=== PATIENT | female | born 1945 | race Caucasian/White ===

== ENCOUNTER 2016-11-14 06:25 | Day surgery (SDC) | payer MEDICARE ==
[2016-11-11 09:59] VITALS: BMI 41.5
[2016-11-14] MEDS ORDERED: SODIUM CHLORIDE 0.9% 500 ML IV ONE (06:50)
[2016-11-14 07:02] VITALS: TEMP 98.4
[2016-11-14 07:05] LABS: Glucose,Whole Blood 240 mg/dL (75-99)
[2016-11-14] MEDS ORDERED: INSULIN LISPRO (humaLOG) 300 UNIT/3 ML VIAL SQ ONE (07:08)
[2016-11-14] MEDS ORDERED: MIDAZOLAM 2 MG/2 ML VIAL ONE ×2 (07:26→09:03)
[2016-11-14] MEDS ORDERED: fentaNYL (PF) 50 MCG/ML 2 ML AMP ONE (07:27)
[2016-11-14] MEDS: BENZOCAINE SPRAY 100 APPLIC/CAN MUCOUS MEM ONE ×2 (07:40→07:42)
[2016-11-14] MEDS: MIDAZOLAM 2 MG/2 ML VIAL IVP ONE ×2 (07:43→07:47)
[2016-11-14] MEDS ORDERED: SODIUM CHLORIDE 0.9% 1,000 ML IV SCH (08:15)
[2016-11-14] MEDS ORDERED: WARFARIN 5 MG TAB PO ONE (08:30)
[2016-11-14 09:05] LABS: CH 29.1; CHCM 32.2; HCT 30.6 % (34.0-46.0); HDW 2.67; HGB 10.3 gm/dL (11.4-16.0); INR 1.2 (<1.2); MCH 30.4 pg (25.0-35.0); MCHC 33.5 g/dL (31.0-37.0); MCV 90.8 fL (80.0-100.0); Mean Platelet Volume 9.1; Prothrombin Time 11.8 sec (9.0-12.0); RBC 3.37 m/uL (3.80-5.40); RDW 14.8 % (11.5-15.5)
[2016-11-14 09:15] LABS: ALT 42 U/L (9-52); AST 41 U/L (14-36); Alkaline Phosphatase 88 U/L (38-126); Anion Gap 8 mmol/L; Blood Urea Nitrogen 29 mg/dL (7-17); Calcium 8.5 mg/dL (8.4-10.2); Carbon Dioxide 27 mmol/L (22-30); Chloride 104 mmol/L (98-107); Glucose 181 mg/dL (74-99); Non-African American GFR(MDRD) >60 (>60 ml/min/1.73 sqM); Potassium 4.2 mmol/L (3.5-5.1); Sodium 139 mmol/L (137-145); Total Bilirubin 0.7 mg/dL (0.2-1.3); Total Protein 5.8 g/dL (6.3-8.2)
[2016-11-14] MEDS ORDERED: ENOXAPARIN 100 MG/ML SYRINGE SQ STA (09:45)
[2016-11-14 11:41] VITALS: PULSE 68
[2016-11-14 11:48] VITALS: BP 135/71; RESP 16
--- NOTE | 2016-11-15 10:16 | ECHOT ---
INDICATION: To evaluate for prosthetic valve stenosis. This is a 71 -year-old lady with history of coronary artery disease status post CABG with WRAY to the LAD and venous graft to PDA with aortic valve replacement to pericardial valve who has had chronic mitral stenosis presented to me with shortness of breath and on transthoracic echo was found to have severe stenosis of prosthetic aortic valve. The patient was advised to undergo transesophageal echo for further evaluation. She had been explained, risks, benefit and alternatives and understood and accepted. PROCEDURE NOTE: Total moderate conscious sedation time was 20 minutes. FINDINGS: This is a technically suboptimal study secondary to artifact. MITRAL VALVE: Mitral valve appears heavily calcified, shows severe restriction in leaflet mobility with moderate central mitral regurgitation. Aortic valve: There is a bioprosthetic valve in aortic position which appears heavily calcified with severe restriction and leaflet mobility. There is mild to moderate aortic regurgitation noted. Tricuspid valve appears normal. There is moderate tricuspid regurgitation noted. Left ventricle has normal size and shows mild to moderate LV systolic function with an ejection fraction of around 40 to 45%. Left atrium appears enlarged. Right atrium and right ventricle appear within normal limits. CONCLUSION: 1. Severe stenosis involving prosthetic aortic valve with mild to moderate aortic regurgitation. 2. Severe mitral stenosis with moderate central mitral regurgitation. 3. Moderate tricuspid regurgitation. 4. LV systolic function. The patient developed significant prosthetic valve stenosis and regurgitation and has underlying mitral stenosis that was not addressed at previous surgery. The patient had very difficult postoperative course following the aortic valve replacement and developed renal failure and has had prolonged hospitalization. I am going to refer her to Dr. Meraz at [facility] to see if the patient is a candidate for redo surgery with mitral and aortic valve replacement and if she is then I am going to do a left heart catheterization on her to reassess the grafts prior to surgery. Incidentally during the procedure, the patient was found in atrial fibrillation. I am going to anticoagulate her with Coumadin. She has unexplained anemia and we will have primary care physician address it further. ANGELIKA
== END 2016-11-14 10:44 | disposition home or self-care (01) ==
LOC: CATHCVL 06:25
PROVIDERS: ATTEND Internal Medicine Cardiovascular Disease
DX: I08.3 Combined rheumatic disorders of mitral, aortic and tricuspid valves (principal); Z95.2 Presence of prosthetic heart valve; Z95.1 Presence of aortocoronary bypass graft; I48.91 Unspecified atrial fibrillation; I10 Essential (primary) hypertension; E78.2 Mixed hyperlipidemia; E11.9 Type 2 diabetes mellitus without complications; Z79.84 Long term (current) use of oral hypoglycemic drugs; Z79.82 Long term (current) use of aspirin; Z79.899 Other long term (current) drug therapy; Z88.0 Allergy status to penicillin; Z88.2 Allergy status to sulfonamides; Z88.8 Allergy status to other drugs, medicaments and biological substances
CPT/HCPCS: 93312; 93320; 93005; 93325; 80053; 84443; 85027; 85610; 99152; 99153; J2250; J1650

== ENCOUNTER 2016-12-11 11:26 | Observation (INO) | payer MEDICARE ==
[2016-12-11] MEDS ORDERED: SODIUM CHLORIDE 0.9% 1,000 ML IV STA ×2 (12:33)
[2016-12-11 13:05] LABS: Anisocytosis Slight; Basophils % (A) 1 %; CH 29.4; CHCM 32.4; Eosinophils # (A) 0.2 k/uL (0-0.7); Eosinophils % (A) 3 %; HCT 35.2 % (34.0-46.0); HGB 11.7 gm/dL (11.4-16.0); Luc # (Auto) 0.13; Luc % (Auto) 2; Lymphocytes # (A) 1.4 k/uL (1.0-4.8); Lymphocytes % (A) 18 %; MCH 30.2 pg (25.0-35.0); MCHC 33.1 g/dL (31.0-37.0); MCV 91.1 fL (80.0-100.0); Mean Platelet Volume 9.1; Monocytes # (A) 0.6 k/uL (0-1.0); Monocytes % (A) 8 %; Neutrophils # (A) 5.3 k/uL (1.3-7.7); Neutrophils % (A) 69 %; RBC 3.87 m/uL (3.80-5.40); RDW 16.7 % (11.5-15.5); WBC 7.7 k/uL (3.8-10.6); WBC (Perox) 7.83
--- NOTE | 2016-12-11 13:13 | ED ---
Nausea/Vomiting/Diarrhea HPI - General Chief complaint: Nausea/Vomiting/Diarrhea Stated complaint: vomiting,diarrhea Time Seen by Provider: 12/11/16 12:11 Source: patient, family, RN notes reviewed, old records reviewed Mode of arrival: ambulatory Limitations: no limitations - History of Present Illness Initial comments: This is a 71-year-old female with multiple comorbidities presenting to the emergency Department chief complaint of diarrhea, and nausea feeling after being treated for urinary tract infection for the past 3 days. Patient reports that she was started on antibiotics and since then has been having some diiarrhea. Patitn was placed on Doxycycline. Patient also relates that on Monday night she did have an episode of chest pain. Patient stated that resolved. Denies any current chest pain or shortness of breath at this time. Denies any specific abdominal pain. She just reports that she feels very dehydrated. Patient relates that she is supposed to have a cardiac cath completed on Monday. She was told to discontinue her warfarin on Monday. Patient son also relates that this morning she did have an episode of slurred speech which immediately resolved. No neurological deficits at this time. Patient denies any headache. Vision changes. Denies any neck pain. Patient reports that she has a history of atrial fibrillation and that is why she is on warfarin. She also has had recent TEEs, and is told that she eventually needs to have heart valve replacements. Patient reports that the cardiac cath scheduled on Monday is to ensure that both of her previous stents are not blocked. - Related Data Home Medications Medication Instructions Recorded Confirmed Aspirin EC [Ecotrin Low Dose] 81 mg PO BID 11/11/16 12/11/16 Atorvastatin [Lipitor] 80 mg PO DAILY 11/11/16 12/11/16 Cholecalciferol (Vitamin D3) 2,000 unit PO DAILY 11/11/16 12/11/16 [Vitamin D3] Furosemide [Lasix] 40 mg PO DAILY 11/11/16 12/11/16 Lisinopril [Zestril] 5 mg PO DAILY 11/11/16 12/11/16 Magnesium Oxide [Mag-Ox] 400 mg PO BID 11/11/16 12/11/16 Metoprolol Tartrate [Lopressor] 25 mg PO BID 11/11/16 12/11/16 Multivitamins, Thera [Multivitamin 1 tab PO DAILY 11/11/16 12/11/16 (formulary)] glipiZIDE [Glucotrol] 5 mg PO BID 11/11/16 12/11/16 metFORMIN HCL [metFORMIN HCL ER] 1,000 mg PO BID 11/11/16 12/11/16 sitaGLIPtin [Januvia] 100 mg PO DAILY 11/11/16 12/11/16 Cyanocobalamin (Vitamin B-12) 1,000 mcg PO DAILY 12/07/16 12/11/16 [Vitamin B-12] Warfarin [Coumadin] 5 mg PO DIRECTED 12/07/16 12/11/16 Doxycycline Hyclate [Vibramycin] 100 mg PO BID 12/11/16 12/11/16 Levothyroxine Sodium [Synthroid] 88 mcg PO MOTUWETHFRSA 12/11/16 12/11/16 Loperamide [Imodium] 2 mg PO DAILY PRN 12/11/16 12/11/16 Allergies Allergy/AdvReac Type Severity Reaction Status Date / Time niacin Allergy Rash/Hives Verified 12/11/16 13:58 [From Niaspan Extended-Release] Penicillins Allergy Rash/Hives Verified 12/11/16 13:58 Sulfa (Sulfonamide Allergy Swelling Verified 12/11/16 13:58 Antibiotics) Review of Systems ROS Statement: Those systems with pertinent positive or pertinent negative responses have been documented in the HPI. ROS Other: All systems not noted in ROS Statement are negative. Past Medical History Past Medical History: Cancer, Diabetes Mellitus, Hyperlipidemia, Hypertension, Myocardial Infarction ([place]), Osteoarthritis (OA), Sleep Apnea/CPAP/BIPAP, Thyroid Disorder Additional Past Medical History / Comment(s): hx uterine cancer, uses cpap Last Myocardial Infarction Date:: 2014? History of Any Multi-Drug Resistant Organisms: None Reported Past Surgical History: Cardiac Valve Replacement, Coronary Bypass/CABG, Heart Catheterization, Hysterectomy, Joint Replacement, Tubal Ligation Additional Past Surgical History / Comment(s): x3 cath, lap band 2006, right hip 2009 with revision,[email or web address], radiation 2009 for uterine cancer Past Anesthesia/Blood Transfusion Reactions: No Reported Reaction Additional Past Anesthesia/Blood Transfusion Reaction / Comment(s): difficulty waking up Past Psychological History: No Psychological Hx Reported Smoking Status: Never smoker Past Alcohol Use History: None Reported Past Drug Use History: None Reported - Past Family History Father Family Medical History: Deep Vein Thrombosis (DVT) Sister(s) Family Medical History: Cancer Mother Family Medical History: Deep Vein Thrombosis (DVT) General Exam - General Exam Comments Initial Comments: This is a 71-year-old female. No acute distress. Limitations: no limitations General appearance: alert, in no apparent distress Head exam: Present: atraumatic, normocephalic, normal inspection Eye exam: Present: normal appearance, PERRL, EOMI. Absent: scleral icterus, conjunctival injection, periorbital swelling ENT exam: Present: normal exam, mucous membranes moist Neck exam: Present: normal inspection. Absent: tenderness, meningismus, lymphadenopathy Respiratory exam: Present: normal lung sounds bilaterally. Absent: respiratory distress, wheezes, rales, rhonchi, stridor Cardiovascular Exam: Present: regular rate, normal rhythm, normal heart sounds. Absent: systolic murmur, diastolic murmur, rubs, gallop, clicks GI/Abdominal exam: Present: soft, normal bowel sounds. Absent: distended, tenderness, guarding, rebound, rigid Extremities exam: Present: normal inspection, full ROM, normal capillary refill. Absent: tenderness, pedal edema, joint swelling, calf tenderness Back exam: Present: normal inspection Neurological exam: Present: alert, oriented X3, CN II-XII intact Expanded Patient oriented to: Present: person, place, time Speech: Present: fluid speech Cranial nerves: EOM's Intact: Normal Cerebellar function: Finger to Nose: Normal Upper motor neuron: Pronator Drift: Normal Sensory exam: Upper Extremity Light Touch: Normal, Lower Extremity Light Touch: Normal Motor strength exam: RUE: 5, LUE: 5, RLE: 5, LLE: 5 Eye Response: (4) open spontaneously Motor Response: (6) obeys commands Verbal Response: (5) oriented Cole Total: 15 Psychiatric exam: Present: normal affect, normal mood Skin exam: Present: warm, dry, intact, normal color. Absent: rash Course Vital Signs 12/11/16 12/11/16 12/11/16 11:52 16:13 16:50 Temperature 98.2 F 97.0 F L Pulse Rate 75 Pulse Rate [ 110 H Pulse Oximetery ] Respiratory 16 20 Rate Blood Pressure 125/60 Blood Pressure 140/81 [Left Arm] O2 Sat by Pulse 94 L 93 L Oximetry 12/11/16 17:00 Temperature 98.7 F Pulse Rate 107 H Pulse Rate [ Pulse Oximetery ] Respiratory Rate Blood Pressure 142/80 Blood Pressure [Left Arm] O2 Sat by Pulse 94 L Oximetry - Reevaluation(s) Reevaluation #1: 12/11/16 15:04 Patient is reevaluated this time is for the results. Patient ambulated to and from the bathroom. Patient has no neurological deficits again at this time. Discussed with the patient and the concern of the slurred speech could be related to TIA. She states that she thinks it's really related to dehydration. At this time patient is feeling better after IV fluids. Discussed this with the family. Discussed everything with Dr. Rothman. Patient will be admitted. Medical Decision Making - Medical Decision Making This is a 71-year-old female with multiple comorbidities presenting to the emergency Department chief complaint of diarrhea, and nausea feeling after being treated for urinary tract infection for the past 3 days. Patient reports that she was started on antibiotics and since then has been having some diiarrhea. Patitn was placed on Doxycycline. Patient also relates that on Monday night she did have an episode of chest pain. Patient stated that resolved. Denies any current chest pain or shortness of breath at this time. Denies any specific abdominal pain. She just reports that she feels very dehydrated. Patient relates that she is supposed to have a cardiac cath completed on Monday. She was told to discontinue her warfarin on Monday. Patient son also relates that this morning she did have an episode of slurred speech which immediately resolved. No neurological deficits at this time. Patient has no abdominal tenderness, denies any chest pain, or shortness of breath. Patient denies any neurological related symptosm at this time. Patient lab work reviewied, negative for any acute process. Negatiev Cdiff and occult blood. Patient son continues to states about patient havig an episode of slurred speech that lasted approximately 10 minutes prior to arriving to ED. Patient did discontinue warfarin for future cardiac cath in a few days. Patient does show Afib, which is chronic, and a few ischemic chagnes in inferior leads. This does appear similiar to previous EKG. Patient CXR was normal, KUB negative. Patient CT brain was normal, did show previous ischemic changes as well. . Patient INR is therapeutic at 2.0. AT this time patient will be admitted with cardiologiy and neurology consult. Patient agrees to admission. Discussed case withDr Rothman, whom examined the patient. He discussed with Dr. Sharpe. - Lab Data Result diagrams: 12/11/16 12:52 12/11/16 12:52 Lab Results 12/11/16 12/11/16 12/11/16 Range/Units 12:52 12:52 12:52 WBC 7.7 (3.8-10.6) k/uL RBC 3.87 (3.80-5.40) m/uL Hgb 11.7 (11.4-16.0) gm/dL Hct 35.2 (34.0-46.0) % MCV 91.1 (80.0-100.0) fL MCH 30.2 (25.0-35.0) pg MCHC 33.1 (31.0-37.0) g/dL RDW 16.7 H (11.5-15.5) % Plt Count 177 (150-450) k/uL Neutrophils % 69 % Lymphocytes % 18 % Monocytes % 8 % Eosinophils % 3 % Basophils % 1 % Neutrophils # 5.3 (1.3-7.7) k/uL Lymphocytes # 1.4 (1.0-4.8) k/uL Monocytes # 0.6 (0-1.0) k/uL Eosinophils # 0.2 (0-0.7) k/uL Basophils # 0.0 (0-0.2) k/uL Anisocytosis Slight PT (9.0-12.0) sec INR (<1.2) APTT (22.0-30.0) sec Sodium 140 (137-145) mmol/L Potassium 4.2 (3.5-5.1) mmol/L Chloride 100 (98-107) mmol/L Carbon Dioxide 29 (22-30) mmol/L Anion Gap 11 mmol/L BUN 23 H (7-17) mg/dL Creatinine 0.70 (0.52-1.04) mg/dL Est GFR (MDRD) Af Amer >60 (>60 ml/min/1.73 sqM) Est GFR (MDRD) Non-Af >60 (>60 ml/min/1.73 sqM) Glucose 85 (74-99) mg/dL Calcium 9.9 (8.4-10.2) mg/dL Magnesium 1.8 (1.6-2.3) mg/dL Total Bilirubin 1.2 (0.2-1.3) mg/dL AST 38 H (14-36) U/L ALT 37 (9-52) U/L Alkaline Phosphatase 108 (38-126) U/L Total Creatine Kinase 35 (30-135) U/L CK-MB (CK-2) <0.2 (0.0-2.4) ng/mL CK-MB (CK-2) Rel Index Troponin I <0.012 (0.000-0.034) ng/mL NT-Pro-B Natriuret Pep pg/mL Total Protein 7.0 (6.3-8.2) g/dL Albumin 4.1 (3.5-5.0) g/dL Amylase <30 L (30-110) U/L Lipase 116 (23-300) U/L Stool Occult Blood (Negative) C. difficile (EIA) Intrp (Negative) 12/11/16 12/11/16 12/11/16 Range/Units 12:52 12:52 13:15 WBC (3.8-10.6) k/uL RBC (3.80-5.40) m/uL Hgb (11.4-16.0) gm/dL Hct (34.0-46.0) % MCV (80.0-100.0) fL MCH (25.0-35.0) pg MCHC (31.0-37.0) g/dL RDW (11.5-15.5) % Plt Count (150-450) k/uL Neutrophils % % Lymphocytes % % Monocytes % % Eosinophils % % Basophils % % Neutrophils # (1.3-7.7) k/uL Lymphocytes # (1.0-4.8) k/uL Monocytes # (0-1.0) k/uL Eosinophils # (0-0.7) k/uL Basophils # (0-0.2) k/uL Anisocytosis PT 19.2 H (9.0-12.0) sec INR 2.0 H (<1.2) APTT 28.9 (22.0-30.0) sec Sodium (137-145) mmol/L Potassium (3.5-5.1) mmol/L Chloride (98-107) mmol/L Carbon Dioxide (22-30) mmol/L Anion Gap mmol/L BUN (7-17) mg/dL Creatinine (0.52-1.04) mg/dL Est GFR (MDRD) Af Amer (>60 ml/min/1.73 sqM) Est GFR (MDRD) Non-Af (>60 ml/min/1.73 sqM) Glucose (74-99) mg/dL Calcium (8.4-10.2) mg/dL Magnesium (1.6-2.3) mg/dL Total Bilirubin (0.2-1.3) mg/dL AST (14-36) U/L ALT (9-52) U/L Alkaline Phosphatase (38-126) U/L Total Creatine Kinase (30-135) U/L CK-MB (CK-2) (0.0-2.4) ng/mL CK-MB (CK-2) Rel Index Troponin I (0.000-0.034) ng/mL NT-Pro-B Natriuret Pep 589 pg/mL Total Protein (6.3-8.2) g/dL Albumin (3.5-5.0) g/dL Amylase (30-110) U/L Lipase (23-300) U/L Stool Occult Blood (Negative) C. difficile (EIA) Intrp Negative (Negative) 12/11/16 Range/Units 13:15 WBC (3.8-10.6) k/uL RBC (3.80-5.40) m/uL Hgb (11.4-16.0) gm/dL Hct (34.0-46.0) % MCV (80.0-100.0) fL MCH (25.0-35.0) pg MCHC (31.0-37.0) g/dL RDW (11.5-15.5) % Plt Count (150-450) k/uL Neutrophils % % Lymphocytes % % Monocytes % % Eosinophils % % Basophils % % Neutrophils # (1.3-7.7) k/uL Lymphocytes # (1.0-4.8) k/uL Monocytes # (0-1.0) k/uL Eosinophils # (0-0.7) k/uL Basophils # (0-0.2) k/uL Anisocytosis PT (9.0-12.0) sec INR (<1.2) APTT (22.0-30.0) sec Sodium (137-145) mmol/L Potassium (3.5-5.1) mmol/L Chloride (98-107) mmol/L Carbon Dioxide (22-30) mmol/L Anion Gap mmol/L BUN (7-17) mg/dL Creatinine (0.52-1.04) mg/dL Est GFR (MDRD) Af Amer (>60 ml/min/1.73 sqM) Est GFR (MDRD) Non-Af (>60 ml/min/1.73 sqM) Glucose (74-99) mg/dL Calcium (8.4-10.2) mg/dL Magnesium (1.6-2.3) mg/dL Total Bilirubin (0.2-1.3) mg/dL AST (14-36) U/L ALT (9-52) U/L Alkaline Phosphatase (38-126) U/L Total Creatine Kinase (30-135) U/L CK-MB (CK-2) (0.0-2.4) ng/mL CK-MB (CK-2) Rel Index Troponin I (0.000-0.034) ng/mL NT-Pro-B Natriuret Pep pg/mL Total Protein (6.3-8.2) g/dL Albumin (3.5-5.0) g/dL Amylase (30-110) U/L Lipase (23-300) U/L Stool Occult Blood Negative (Negative) C. difficile (EIA) Intrp (Negative) 12/11/16 13:39 EKG shows atrial fibrillation. T waves abnormality in leads to 3 aVF. Patient does have very of Natasha beats per minute. QRS duration 90 ms. QT QTC 390/460. EKG was compared to November 14 of this year. There was some ischemic changes in lead 3 that time. There does appear to be some worsening ischemic changes in aVF. - Radiology Data Radiology results: report reviewed Chest x-ray shows mild changes of congestive heart failure. CT brain No acute intracranial abnormality. Mild atrophy. Chronic white matter ischemic change. KUB x-ray was reviewed and shows no evidence of any acute trauma abdominal Disposition Clinical Impression: Acute diarrhea, History of dysarthria, UTI (urinary tract infection) Disposition: ADMITTED IP TO THIS HOSP Condition: Stable Time of Disposition: 16:04
[2016-12-11 13:14] LABS: ALT 37 U/L (9-52); AST 38 U/L (14-36); Alkaline Phosphatase 108 U/L (38-126); Amylase <30 U/L (30-110); Anion Gap 11 mmol/L; Blood Urea Nitrogen 23 mg/dL (7-17); Calcium 9.9 mg/dL (8.4-10.2); Carbon Dioxide 29 mmol/L (22-30); Chloride 100 mmol/L (98-107); Glucose 85 mg/dL (74-99); Magnesium 1.8 mg/dL (1.6-2.3); Non-African American GFR(MDRD) >60 (>60 ml/min/1.73 sqM); Potassium 4.2 mmol/L (3.5-5.1); Sodium 140 mmol/L (137-145); Total Bilirubin 1.2 mg/dL (0.2-1.3)
[2016-12-11 13:23] LABS: Creatine Kinase 35 U/L (30-135)
[2016-12-11 13:36] LABS: Creatine Kinase MB <0.2 ng/mL (0.0-2.4); Troponin I <0.012 ng/mL (0.000-0.034)
[2016-12-11 13:43] LABS: Partial Thromboplastin Time 28.9 sec (22.0-30.0); Prothrombin Time 19.2 sec (9.0-12.0)
--- NOTE | 2016-12-11 14:03 | XR ---
EXAMINATION TYPE: XR chest 2V DATE OF EXAM: 12/11/2016 HISTORY: Chest Pain. REFERENCE: Previous study dated 10/24/2013. FINDINGS: There has been a previous midline sternotomy. The heart is enlarged. There is vascular congestion and mild interstitial change. Pleural spaces appe ar clear. IMPRESSION: MILD CHANGES OF CONGESTIVE HEART FAILURE.
--- NOTE | 2016-12-11 14:04 | XR ---
EXAMINATION TYPE: XR KUB , 2 VIEWS DATE OF EXAM ORDERED: 12/11/2016 HISTORY: Pain. COMPARISON: None. FINDINGS: There is a right hip arthroplasty in place. There is a lap band in place. Its incompletely visualized. The abdominal gas pattern is normal. There is no evidence of obstruction or free air. There is amorph ous calcification around the patient's arthroplasty. IMPRESSION: NO ACUTE INTRA-ABDOMINAL ABNORMALITY.
--- NOTE | 2016-12-11 14:11 | CT ---
EXAMINATION TYPE: CT brain wo con DATE OF EXAM: 12/11/2016 COMPARISON: NONE HISTORY: Slurred speech earlier, fatigue, nausea and vomiting. CT DLP: 1061.00 mGycm Automated exposure control for dose reduction was used. FINDINGS: There are mild, generalized changes of sulcal prominence and ventriculomegaly, compatible with mild a trophic change. There is diffuse periventricular white matter lucency, compatible with chronic white matter ischemic change. There is no acute focal lesion, mass effect or midline shift identified. I do not see evidence of intracranial blood. Note is made of a cavum septum callosum, a normal variant. Visualized portions of the paranasal sinuses and mastoids are clear. IMPRESSION: 1. NO ACUTE INTRACRANIAL ABNORMALITY. 2. MILD ATROPHY. 3. CHRONIC WHITE MATTER ISCHEMIC CHANGE.
[2016-12-11] MEDS ORDERED: NALOXONE 0.4 MG/ML 1 ML VIAL IV PRN (16:04)
[2016-12-11] MEDS ORDERED: ACETAMINOPHEN TAB 325 MG TAB PO PRN (16:04)
[2016-12-11] MEDS ORDERED: Acetaminophen-Codeine 300-30mg TAB PO PRN (16:04)
[2016-12-11] MEDS ORDERED: MORPHINE SULFATE 4 MG/ML SYRINGE IV PRN (16:04)
[2016-12-11] MEDS ORDERED: IBUPROFEN 400 MG TAB PO PRN (16:04)
[2016-12-11] MEDS ORDERED: ONDANSETRON 4 MG/2 ML VIAL IVP PRN (16:04)
[2016-12-11] MEDS ORDERED: NITROGLYCERIN SL TABS 0.4 MG TAB SUBLINGUAL PRN (16:13)
[2016-12-11] MEDS ORDERED: LOPERAMIDE 2 MG CAP PO PRN (16:14)
[2016-12-11] MEDS ORDERED: LOPERAMIDE 2 MG CAP PO STA (16:32)
[2016-12-11 17:27] VITALS: BMI 41.5
[2016-12-11 17:27] LABS: Glucose,Whole Blood 139 mg/dL (75-99)
[2016-12-11] MEDS: SODIUM CHLORIDE 0.9% 1,000 ML IV SCH (17:51)
[2016-12-11 19:22] LABS: Creatine Kinase MB 0.5 ng/mL (0.0-2.4); Troponin I 0.017 ng/mL (0.000-0.034)
[2016-12-11] MEDS: MAGNESIUM OXIDE 400 MG TAB PO SCH (20:38)
[2016-12-11] MEDS: glipiZIDE 5 MG TAB PO SCH (20:38)
[2016-12-11] MEDS: DOXYCYCLINE 50 MG CAP PO SCH (20:38)
[2016-12-11] MEDS: metFORMIN 500 MG TAB PO SCH (20:39)
[2016-12-11] MEDS: METOPROLOL TARTRATE 25 MG TAB PO SCH (20:40)
[2016-12-11 20:55] LABS: Glucose,Whole Blood 150 mg/dL (75-99)
[2016-12-11 21:23] LABS: Appearance,Urine Clear (Clear); Bacteria,Urine Rare /hpf; Bilirubin,Urine Negative (Negative); Glucose,Urine (UA) Negative (Negative); Ketones,Urine Negative (Negative); Leukocyte Esterase,Urine Moderate (Negative); Mucus,Urine Rare /hpf; Nitrite,Urine Negative (Negative); PH, Urine 6.5 (5.0-8.0); Particle Count 2633; Protein,Urine Negative (Negative); RBC,Urine 1 /hpf (0-5); Squamous Epithelial Cell,Urine <1 /hpf (0-4); UA Billing (MACRO vs. MICRO) MICRO; Urobilinogen,Urine <2.0 mg/dL (<2.0); WBC,Urine 6 /hpf (0-5)
[2016-12-12 01:36] LABS: Creatine Kinase MB 0.8 ng/mL (0.0-2.4)
[2016-12-12 01:51] LABS: Troponin I 0.038 ng/mL (0.000-0.034)
[2016-12-12] MEDS: SODIUM CHLORIDE 0.9% 1,000 ML IV SCH ×3 (02:45→18:35)
[2016-12-12 02:48] LABS: Glucose,Whole Blood 74 mg/dL (75-99)
[2016-12-12 06:08] LABS: Glucose,Whole Blood 140 mg/dL (75-99)
[2016-12-12 06:15] LABS: Anisocytosis Slight; Basophils % (A) 1 %; CHCM 31.2; Eosinophils # (A) 0.1 k/uL (0-0.7); Eosinophils % (A) 2 %; HCT 34.1 % (34.0-46.0); HDW 2.87; HGB 10.7 gm/dL (11.4-16.0); Hypochromasia Slight; Luc # (Auto) 0.12; Luc % (Auto) 2; Lymphocytes # (A) 1.3 k/uL (1.0-4.8); Lymphocytes % (A) 19 %; MCH 29.4 pg (25.0-35.0); MCHC 31.4 g/dL (31.0-37.0); MCV 93.6 fL (80.0-100.0); Mean Platelet Volume 8.9; Monocytes # (A) 0.5 k/uL (0-1.0); Monocytes % (A) 7 %; Neutrophils # (A) 4.8 k/uL (1.3-7.7); Neutrophils % (A) 70 %; RBC 3.64 m/uL (3.80-5.40); RDW 16.8 % (11.5-15.5); WBC 6.8 k/uL (3.8-10.6); WBC (Perox) 7.38
[2016-12-12] MEDS: LEVOTHYROXINE 88 MCG TAB PO SCH (06:30)
[2016-12-12 06:38] LABS: ALT 37 U/L (9-52); AST 33 U/L (14-36); Alkaline Phosphatase 86 U/L (38-126); Amylase 31 U/L (30-110); Anion Gap 10 mmol/L; Blood Urea Nitrogen 18 mg/dL (7-17); Calcium 8.9 mg/dL (8.4-10.2); Carbon Dioxide 25 mmol/L (22-30); Chloride 105 mmol/L (98-107); Cholesterol 140 mg/dL (<200); Glucose 132 mg/dL (74-99); HDL Cholesterol 42 mg/dL (40-60); Non-African American GFR(MDRD) >60 (>60 ml/min/1.73 sqM); Potassium 3.9 mmol/L (3.5-5.1); Sodium 140 mmol/L (137-145); Total Protein 6.1 g/dL (6.3-8.2)
--- NOTE | 2016-12-12 08:39 | P.CRDCN ---
History of Present Illness Consult date: 12/12/16 Consult reason: other (Patient is admitted to hospital with diarrhea possible urinary tract infection and not feeling well) History of present illness: 71-year-old lady with history of coronary artery disease status post CABG with WRAY to LAD and venous graft to PDA iritic stenosis status post aortic valve replacement mitral stenosis who recently underwent a NEIL and had since been evaluated at [facility] for redo aortic valve surgery and mitral valve replacement. She was to undergo cardiac catheterization on . She developed symptoms of urinary tract infection was seen by her primary care physician in the outpatient setting started on antibiotics subsequently developed diarrhea vomiting and yesterday she was found to be very sick by her son and brought in to Hospital. She does not have any clear-cut focal neurological deficits. She denies leg edema. Has stable exertional shortness of breath. Patient has history of chronic atrial fibrillation currently on Coumadin most recent INR is 2.0. I will resume the Coumadin. I'm going to cancel the cardiac catheterization for now. Once the urinary tract infection resolves he' ll do a. She is to undergo NEIL at [facility] in first week of January. There is mild troponin elevation but patient's clinical presentation is not consistent with acute myocardial ischemia. EKG shows atrial fibrillation with nonspecific ST-T wave changes Review of Systems Constitutional: Denies chills. Denies fever. Eyes: Denies blurred vision. Denies pain. Ears, nose, mouth and throat: Denies headache. Denies sore throat. Cardiovascular: Denies chest pain. Denies shortness of breath. Respiratory: Denies cough. Gastrointestinal: Denies abdominal pain. Has diarrhea and vomiting Musculoskeletal: Denies myalgias. Integumentary: Denies pruritus. Denies rash. Neurological: Denies numbness. Denies weakness. Psychiatric: Denies anxiety. Denies depression. Endocrine: Denies fatigue. Denies weight change. Genitourinary: frequency of urination and burning Hematological: No anemia or excess bleeding. Past Medical History Past Medical History: Cancer, Diabetes Mellitus, Hyperlipidemia, Hypertension, Myocardial Infarction (SC), Osteoarthritis (OA), Sleep Apnea/CPAP/BIPAP, Thyroid Disorder Additional Past Medical History / Comment(s): hx uterine cancer, uses cpap Last Myocardial Infarction Date:: 2014? History of Any Multi-Drug Resistant Organisms: None Reported Past Surgical History: Cardiac Valve Replacement, Coronary Bypass/CABG, Heart Catheterization, Hysterectomy, Joint Replacement, Tubal Ligation Additional Past Surgical History / Comment(s): x3 cath, lap band 2006, right hip 2009 with revision,[email or web address], radiation 2009 for uterine cancer Past Anesthesia/Blood Transfusion Reactions: No Reported Reaction Additional Past Anesthesia/Blood Transfusion Reaction / Comment(s): difficulty waking up Past Psychological History: No Psychological Hx Reported Smoking Status: Never smoker Past Alcohol Use History: None Reported Past Drug Use History: None Reported - Past Family History Father Family Medical History: Deep Vein Thrombosis (DVT) Sister(s) Family Medical History: Cancer Mother Family Medical History: Deep Vein Thrombosis (DVT) Medications and Allergies Home Medications Medication Instructions Recorded Confirmed Type Aspirin EC [Ecotrin Low Dose] 81 mg PO BID 11/11/16 12/11/16 History Atorvastatin [Lipitor] 80 mg PO DAILY 11/11/16 12/11/16 History Cholecalciferol (Vitamin D3) 2,000 unit PO DAILY 11/11/16 12/11/16 History [Vitamin D3] Furosemide [Lasix] 40 mg PO DAILY 11/11/16 12/11/16 History Lisinopril [Zestril] 5 mg PO DAILY 11/11/16 12/11/16 History Magnesium Oxide [Mag-Ox] 400 mg PO BID 11/11/16 12/11/16 History Metoprolol Tartrate [Lopressor] 25 mg PO BID 11/11/16 12/11/16 History Multivitamins, Thera [Multivitamin 1 tab PO DAILY 11/11/16 12/11/16 History (formulary)] glipiZIDE [Glucotrol] 5 mg PO BID 11/11/16 12/11/16 History metFORMIN HCL [metFORMIN HCL ER] 1,000 mg PO BID 11/11/16 12/11/16 History sitaGLIPtin [Januvia] 100 mg PO DAILY 11/11/16 12/11/16 History Cyanocobalamin (Vitamin B-12) 1,000 mcg PO DAILY 12/07/16 12/11/16 History [Vitamin B-12] Warfarin [Coumadin] 5 mg PO DIRECTED 12/07/16 12/11/16 History Doxycycline Hyclate [Vibramycin] 100 mg PO BID 12/11/16 12/11/16 History Levothyroxine Sodium [Synthroid] 88 mcg PO MOTUWETHFRSA 12/11/16 12/11/16 History Loperamide [Imodium] 2 mg PO DAILY PRN 12/11/16 12/11/16 History Allergies Allergy/AdvReac Type Severity Reaction Status Date / Time niacin Allergy Rash/Hives Verified 12/11/16 13:58 [From Niaspan Extended-Release] Penicillins Allergy Rash/Hives Verified 12/11/16 13:58 Sulfa (Sulfonamide Allergy Swelling Verified 12/11/16 13:58 Antibiotics) Physical Exam Vitals: Vital Signs Temp Pulse Pulse Resp BP BP Pulse Ox 12/12/16 04:00 96.8 F L 77 16 113/53 100 12/12/16 00:00 75 16 115/63 95 12/11/16 20:00 96.9 F L 86 18 112/72 90 L 12/11/16 17:48 97.0 F L 110 H 20 140/81 93 L 12/11/16 17:38 110 H 20 12/11/16 17:00 98.7 F 107 H 142/80 94 L 12/11/16 16:50 97.0 F L 110 H 20 140/81 12/11/16 16:13 93 L 12/11/16 11:52 98.2 F 75 16 125/60 94 L Intake and Output 12/11/16 12/12/16 12/12/16 22:59 06:59 14:59 Intake Total 960 200 Balance 960 200 Intake: Intake, IV Titration 960 Amount Sodium Chloride 0.9% 1, 960 000 ml @ 120 mls/hr IV . Q8H20M [facility] Rx#:[id number] Oral 200 Other: Voiding Method Toilet # Bowel Movements 2 Weight 93.44 kg 94.8 kg General: The patient is awake and alert, in no distress, and does not appear acutely ill. Skin: Skin is warm and dry and no rashes or lesions are noted. Eye: Pupils are equal, round and reactive to light, extra-ocular movements are intact; there is normal conjunctiva bilaterally. Ears, nose, mouth and throat: There are moist mucous membranes and no oral lesions. Neck: The neck is supple, there is no tenderness or JVD. Cardiovascular: Irregular grade 4 x 6 ejection systolic murmur at the base of the heart. Systolic murmur at the apex. Respiratory: Lungs are clear to auscultation, respirations are non-labored, breath sounds are equal. Gastrointestinal: Soft, non-distended, non-tender abdomen without masses or organomegaly noted. There is no rebound or guarding present. Bowel sounds are unremarkable. Back: There is no tenderness to palpation in the midline. There is no obvious deformity. Musculoskeletal: Normal ROM, no tenderness, There is no pedal edema. There is no calf tenderness or swelling. Extremities: No edema. Vascular: Femoral pulse is normal. Posterior tibial pulses are normal .Dorsalis pedis is palpable. Neurological: CN II-XII intact. There are no obvious motor or sensory deficits. Speech is normal. Psychiatric: Cooperative, appropriate mood & affect, normal judgment. Results 12/12/16 05:31 12/12/16 05:31 Cardiac Enzymes 12/11/16 12/11/16 12/11/16 Range/Units 12:52 12:52 18:33 AST 38 H (14-36) U/L CK-MB (CK-2) <0.2 0.5 (0.0-2.4) ng/mL Troponin I <0.012 0.017 (0.000-0.034) ng/mL 12/12/16 12/12/16 Range/Units 00:21 05:31 AST 33 (14-36) U/L CK-MB (CK-2) 0.8 (0.0-2.4) ng/mL Troponin I 0.038 H* (0.000-0.034) ng/mL Coagulation 12/11/16 Range/Units 12:52 PT 19.2 H (9.0-12.0) sec APTT 28.9 (22.0-30.0) sec Lipids 12/12/16 Range/Units 05:31 Triglycerides 148 (<150) mg/dL Cholesterol 140 (<200) mg/dL HDL Cholesterol 42 (40-60) mg/dL CBC 12/11/16 12/12/16 Range/Units 12:52 05:31 WBC 7.7 6.8 (3.8-10.6) k/uL RBC 3.87 3.64 L (3.80-5.40) m/uL Hgb 11.7 10.7 L (11.4-16.0) gm/dL Hct 35.2 34.1 (34.0-46.0) % Plt Count 177 166 (150-450) k/uL Comprehensive Metabolic Panel 12/11/16 12/12/16 Range/Units 12:52 05:31 Sodium 140 140 (137-145) mmol/L Potassium 4.2 3.9 (3.5-5.1) mmol/L Chloride 100 105 (98-107) mmol/L Carbon Dioxide 29 25 (22-30) mmol/L BUN 23 H 18 H (7-17) mg/dL Creatinine 0.70 0.67 (0.52-1.04) mg/dL Glucose 85 132 H (74-99) mg/dL Calcium 9.9 8.9 (8.4-10.2) mg/dL AST 38 H 33 (14-36) U/L ALT 37 37 (9-52) U/L Alkaline Phosphatase 108 86 (38-126) U/L Total Protein 7.0 6.1 L (6.3-8.2) g/dL Albumin 4.1 3.4 L (3.5-5.0) g/dL Current Medications Generic Name Dose Route Start Last Admin Trade Name Freq PRN Reason Stop Dose Admin Acetaminophen 650 mg 12/11/16 16:04 Tylenol Tab PO Q6HR PRN Mild Pain or Fever > 100.5 Acetaminophen/Codeine Phosphate 1 each 12/11/16 16:04 Tylenol #3 PO Q4HR PRN Moderate Pain Aspirin 325 mg 12/12/16 09:00 Aspirin PO DAILY [facility] Atorvastatin Calcium 80 mg 12/12/16 09:00 Lipitor PO DAILY [facility] Cholecalciferol 2,000 unit 12/12/16 09:00 Vitamin D3 PO DAILY [facility] Cyanocobalamin 1,000 mcg 12/12/16 09:00 Vitamin B-12 PO DAILY [facility] Doxycycline Monohydrate 100 mg 12/11/16 21:00 12/11/16 20:38 Vibramycin PO 12/16/16 21:01 100 mg BID [facility] Administration Furosemide 40 mg 12/12/16 09:00 Lasix PO DAILY [facility] Glipizide 5 mg 12/11/16 21:00 12/11/16 20:38 Glucotrol PO 5 mg BID [facility] Administration Sodium Chloride 1,000 mls @ 120 mls/hr 12/11/16 16:15 12/12/16 02:45 Saline 0.9% IV 120 mls/hr .Q8H20M [facility] Administration Ibuprofen 400 mg 12/11/16 16:04 Motrin PO Q6HR PRN Mild Pain or Fever > 100.5 Levothyroxine Sodium 88 mcg 12/12/16 06:30 12/12/16 06:30 Synthroid PO 88 mcg MOTUWETHFRSA [facility] Administration Linagliptin 5 mg 12/12/16 09:00 Tradjenta PO DAILY [facility] Lisinopril 5 mg 12/12/16 09:00 Zestril PO DAILY [facility] Loperamide HCl 2 mg 12/11/16 16:14 Imodium PO DAILY PRN Diarrhea Magnesium Oxide 400 mg 12/11/16 21:00 12/11/16 20:38 Mag-Ox PO 400 mg BID [facility] Administration Metformin HCl 1,000 mg 12/11/16 21:00 12/11/16 20:39 Glucophage PO 1,000 mg BID [facility] Administration Metoprolol Tartrate 25 mg 12/11/16 21:00 12/11/16 20:40 Lopressor PO 25 mg BID [facility] Administration Morphine Sulfate 4 mg 12/11/16 16:04 Morphine Sulfate (Inj) IV Q4HR PRN Severe Pain Multivitamins 1 each 12/12/16 12:00 Theragran PO DAILY@1200 [facility] Naloxone HCl 0.2 mg 12/11/16 16:04 Narcan IV Q2M PRN Opioid Reversal Nitroglycerin 0.4 mg 12/11/16 16:13 Nitrostat SUBLINGUAL Q5M PRN Chest Pain Ondansetron HCl 4 mg 12/11/16 16:04 Zofran IVP Q8HR PRN Nausea And Vomiting Pantoprazole Sodium 40 mg 12/12/16 09:00 Protonix IV DAILY [facility] Intake and Output 12/11/16 12/12/16 12/12/16 22:59 06:59 14:59 Intake Total 960 200 Balance 960 200 Intake: Intake, IV Titration 960 Amount Sodium Chloride 0.9% 1, 960 000 ml @ 120 mls/hr IV . Q8H20M [facility] Rx#:[id number] Oral 200 Other: Voiding Method Toilet # Bowel Movements 2 Weight 93.44 kg 94.8 kg 12/12/16 05:31 12/12/16 05:31 EKG Interpretations (text) Atrial fibrillation with nonspecific ST-T wave changes Assessment and Plan Plan: Urinary tract infection Vomiting and diarrhea probably secondary to antibiotics Mild troponin elevation of unclear clinical significance Severe prosthetic valve stenosis Mitral stenosis Chronic atrial fibrillation I will continue the patient on current cardiac medications. Please watch out for coagulopathy with antibiotics. I'm going to postpone her cardiac catheterization from this week. When she is feeling better we will do it And she will continue with her workup and treatment at [facility] for prosthetic valve stenosis and mitral stenosis
[2016-12-12] MEDS ORDERED: PANTOPRAZOLE 40 MG/10 ML VIAL IV SCH (09:00)
[2016-12-12] MEDS ORDERED: ASPIRIN 325 MG TAB PO SCH (09:00)
[2016-12-12] MEDS: ATORVASTATIN 80 MG TAB PO SCH (09:06)
[2016-12-12] MEDS: CHOLECALCIFEROL 1,000 UNIT TAB PO SCH (09:06)
[2016-12-12] MEDS: CYANOCOBALAMIN 500 MCG TAB PO SCH (09:07)
[2016-12-12] MEDS: DOXYCYCLINE 50 MG CAP PO SCH ×2 (09:07→21:20)
[2016-12-12] MEDS: MAGNESIUM OXIDE 400 MG TAB PO SCH ×2 (09:08→21:20)
[2016-12-12] MEDS: FUROSEMIDE 40 MG TAB PO SCH (09:08)
[2016-12-12] MEDS: LINAGLIPTIN 5 MG TABLET PO SCH (09:08)
[2016-12-12] MEDS: glipiZIDE 5 MG TAB PO SCH ×2 (09:08→21:20)
[2016-12-12] MEDS: LISINOPRIL 5 MG TAB PO SCH (09:08)
[2016-12-12] MEDS: METOPROLOL TARTRATE 25 MG TAB PO SCH ×2 (09:09→21:20)
[2016-12-12] MEDS: metFORMIN 500 MG TAB PO SCH ×2 (09:09→21:20)
[2016-12-12] MEDS: MULTIVITAMINS, THERA 1 EACH TAB PO SCH (09:09)
--- NOTE | 2016-12-12 09:39 | US ---
EXAMINATION TYPE: US carotid duplex BILAT DATE OF EXAM: 12/12/2016 COMPARISON: NONE CLINICAL HISTORY: Pain. Dysarthria EXAM MEASUREMENTS: RIGHT: Peak Systolic Velocity (PSV) cm/sec ----- Right CCA: 41.5 ----- Right ICA: 68.8 ----- Right ECA: 47.3 ICA/CCA ratio: 1.7 RIGHT: End Diastole cm/sec ----- Right CCA: 9.6 ----- Right ICA: 27.7 ----- Right ECA: 0.0 LEFT: Peak Systolic Velocity (PSV) cm/sec ----- Left CCA: 49.6 ----- Left ICA: 118.8 ----- Left ECA: 31.6 ICA/CCA ratio: 2.4 LEFT: End Diastole cm/sec ----- Left CCA: 17.4 ----- Left ICA: 36.7 ----- Left ECA: 0.0 VERTEBRALS (direction of flow): Right Vertebral: Antegrade Left Vertebral: Antegrade Bilateral intimal thickening, minimal plaque bilateral bulb and ICA, left ICA/CCA ratio of 2.4 IMPRESSION: 1. Intimal thickening and plaque bilaterally with findings suggestive of 50-69% stenosis within the p roximal left ICA. Correlate with CTA as clinically warranted.
[2016-12-12 11:50] LABS: Glucose,Whole Blood 158 mg/dL (75-99)
[2016-12-12 16:42] LABS: Glucose,Whole Blood 81 mg/dL (75-99)
[2016-12-12] MEDS ORDERED: WARFARIN 5 MG TAB PO ONE (18:00)
--- NOTE | 2016-12-12 18:22 | P.HPIM ---
History of Present Illness H&P Date: 12/12/16 Chief Complaint: Nausea vomiting and diarrhea, elevated troponin, severe prostatic aortic va 71-year-old female one of Dr. Scott's patient who apparently was scheduled Dr. Del Toro to have heart catheter and transesophageal echocardiogram for possible going for aortic valve placement and possible mitral valve placement at [facility]. Patient apparently was seen in the office on and had UTI was started on doxycycline she developed significant abdominal discomfort with nausea vomiting and severe diarrhea he come quite bit dehydrated lightheaded and dizzy developed to have mild chest tightness and pressure. Patient ended up coming to demurs department at [facility] with above problem was seen and evaluated could not slowdown diarrhea or nausea vomiting and started having more symptoms found to have A. fib with RVR in her EKG decided to admit patient to the hospital seeing cardiology as an inpatient and plan where anticoagulation to resume it for now because would not be able to go for heart catheter till her diarrhea and GI symptoms are better. Patient still very lightheaded and dizzy not been able to ambulate and walk still symptomatic with the severe diarrhea C. diff came back negative for the time ration will be started on Questran along with Lomotil [id number] till her symptoms are better still been treated for an existing UTI with doxycycline. Review of Systems Constitutional: Reports anorexia, Reports chronic pain, Reports fatigue, Reports poor appetite, Reports weakness, Reports weight loss, Denies as per HPI , Denies chills, Denies chronic headaches, Denies daytime sleepiness, Denies fever, Denies lethargy, Denies malaise, Denies night sweats, Denies sweats, Denies weight gain Eyes: bilateral as per HPI Ears: bilateral: decreased hearing Ears, nose, mouth and throat: Reports ant. neck pain, Reports dental pain, Reports nasal discharge, Reports sinus pain, Reports sinus pressure, Denies as per HPI, Denies bleeding gums, Denies dysphagia, Denies epistaxis, Denies headache, Denies hoarseness, Denies mouth pain, Denies nasal congestion, Denies neck fullness/pressure, Denies neck lump, Denies nose pain, Denies odynophagia, Denies post-nasal drip, Denies swelling in mouth, Denies swelling in throat, Denies sore throat, Denies vertigo, Denies voice changes Breasts: bilateral: as per HPI Cardiovascular: Reports chest pain, Reports dyspnea on exertion, Reports edema, Reports leg edema, Reports orthopnea, Reports palpitations, Reports rapid heart beat, Reports shortness of breath, Denies as per HPI, Denies claudication, Denies decreased exercise tolerance, Denies high blood pressure, Denies irregular heart beat, Denies lightheadedness, Denies paroxysmal nocturnal dyspnea, Denies phlebitis, Denies syncope Respiratory: Reports congestion, Reports dyspnea, Reports pain, Reports pain on inspiration, Denies as per HPI, Denies cough, Denies cough with sputum, Denies excessive sputum, Denies hemoptysis, Denies home oxygen, Denies pleurisy, Denies respiratory infections, Denies sleep apnea, Denies snoring, Denies wheezing Gastrointestinal: Reports abdominal pain, Reports belching, Reports bloating, Reports change in bowel habits, Reports dyspepsia, Reports early satiety, Reports excessive gas, Reports indigestion, Reports loss of appetite, Reports nausea Genitourinary: Reports dysmenorrhea, Reports dysuria, Reports genital sores, Reports incomplete emptying, Reports mixed incontinence, Reports nocturia, Reports urge incontinence, Reports urinary frequency, Denies as per HPI, Denies abnormal vaginal bleeding, Denies decreased libido, Denies difficulty conceiving , Denies difficulty voiding, Denies dyspareunia, Denies flank pain, Denies hematuria, Denies hot flashes, Denies kidney stones, Denies menorrhagia, Denies pelvic pain, Denies post void dribbling, Denies , Denies prolapse symptoms, Denies stress incontinence, Denies urgency, Denies vaginal discharge, Denies vaginal dryness, Denies vaginal itching, Denies vaginal odor Musculoskeletal: Reports frequent falls, Reports gait dysfunction, Reports low back pain, Reports myalgias, Reports neck pain, Reports neck stiffness, Denies as per HPI, Denies arm numbness/tingling, Denies atrophy, Denies fractures, Denies hot joints, Denies leg numbness/tingling, Denies limitation of motion, Denies loss of height, Denies morning stiffness, Denies muscle cramps, Denies muscle weakness, Denies prior amputations, Denies redness of joints, Denies shooting arm pain, Denies shooting leg pain Musculoskeletal: bilateral: ankle pain Integumentary: Reports pruritus, Reports rash, Denies as per HPI, Denies acne, Denies boils, Denies brittle nails, Denies change in hair/nails, Denies color changes, Denies darkening of skin, Denies depigmentation, Denies dryness, Denies foot/leg ulcers, Denies growths, Denies hirsutism, Denies lesions, Denies onychomycosis, Denies sores, Denies striae, Denies unusual bruising, Denies wounds Neurological: Reports ataxia, Reports headaches, Reports numbness, Reports paresthesias, Reports syncope, Reports tingling, Reports tremors, Reports weakness, Denies as per HPI, Denies aphasia, Denies balance difficulties, Denies burning pain, Denies change in mentation, Denies change in smell/taste, Denies change in speech, Denies confusion, Denies convulsions, Denies double vision, Denies gait dysfunction, Denies head injury, Denies hearing difficulties , Denies lack of coordination, Denies loss of vision, Denies memory loss, Denies migraines, Denies motor disturbance, Denies paralysis, Denies seizures, Denies sensory deficit, Denies spasticity, Denies tic, Denies transient paralysis, Denies vertigo, Denies visual changes Psychiatric: Reports anhedonia, Reports anxiety, Reports anxiety attacks, Reports depression, Reports memory loss, Denies as per HPI, Denies change in appetite, Denies change in libido, Denies change in sleep habits, Denies confusion, Denies difficulty concentrating, Denies disorientation, Denies hallucinations, Denies hopelessness, Denies hypersomnia, Denies insomnia, Denies irritability, Denies mood swings, Denies paranoia, Denies sadness/ tearfulness, Denies sleep disturbances, Denies suicidal ideation Endocrine: Reports cold intolerance, Reports polydipsia, Reports polyphagia, Reports polyuria, Denies as per HPI, Denies deepening of the voice, Denies excessive sweating, Denies excessive thirst, Denies fatigue, Denies flushing, Denies heat intolerance, Denies high blood sugars, Denies increase in ring/shoe/ hat size, Denies low blood sugars, Denies nocturia, Denies palpitations, Denies proptosis, Denies recent glucocorticoid use, Denies thyroid mass, Denies weight change Hematologic/Lymphatic: Reports easy bruising, Denies as per HPI, Denies easy bleeding, Denies lymphadenopathy, Denies lymphedema, Denies thrombophilia Allergic/Immunologic: Reports allergic rhinitis, Denies as per HPI, Denies anaphylaxis, Denies angioedema, Denies gluten intolerance, Denies persistent infections, Denies seasonal allergies, Denies urticaria, Denies wheezing Past Medical History Past Medical History: Cancer, Diabetes Mellitus, Hyperlipidemia, Hypertension, Myocardial Infarction ([place]), Osteoarthritis (OA), Sleep Apnea/CPAP/BIPAP, Thyroid Disorder Additional Past Medical History / Comment(s): hx uterine cancer, uses cpap Last Myocardial Infarction Date:: 2014? History of Any Multi-Drug Resistant Organisms: None Reported Past Surgical History: Cardiac Valve Replacement, Coronary Bypass/CABG, Heart Catheterization, Hysterectomy, Joint Replacement, Tubal Ligation Additional Past Surgical History / Comment(s): x3 cath, lap band 2006, right hip 2009 with revision,[email or web address], radiation 2009 for uterine cancer Past Anesthesia/Blood Transfusion Reactions: No Reported Reaction Additional Past Anesthesia/Blood Transfusion Reaction / Comment(s): difficulty waking up Past Psychological History: No Psychological Hx Reported Smoking Status: Never smoker Past Alcohol Use History: None Reported Past Drug Use History: None Reported - Past Family History Father Family Medical History: Deep Vein Thrombosis (DVT) Sister(s) Family Medical History: Cancer Mother Family Medical History: Deep Vein Thrombosis (DVT) Medications and Allergies Home Medications Medication Instructions Recorded Confirmed Type Aspirin EC [Ecotrin Low Dose] 81 mg PO BID 11/11/16 12/11/16 History Atorvastatin [Lipitor] 80 mg PO DAILY 11/11/16 12/11/16 History Cholecalciferol (Vitamin D3) 2,000 unit PO DAILY 11/11/16 12/11/16 History [Vitamin D3] Furosemide [Lasix] 40 mg PO DAILY 11/11/16 12/11/16 History Lisinopril [Zestril] 5 mg PO DAILY 11/11/16 12/11/16 History Magnesium Oxide [Mag-Ox] 400 mg PO BID 11/11/16 12/11/16 History Metoprolol Tartrate [Lopressor] 25 mg PO BID 11/11/16 12/11/16 History Multivitamins, Thera [Multivitamin 1 tab PO DAILY 11/11/16 12/11/16 History (formulary)] glipiZIDE [Glucotrol] 5 mg PO BID 11/11/16 12/11/16 History metFORMIN HCL [metFORMIN HCL ER] 1,000 mg PO BID 11/11/16 12/11/16 History sitaGLIPtin [Januvia] 100 mg PO DAILY 11/11/16 12/11/16 History Cyanocobalamin (Vitamin B-12) 1,000 mcg PO DAILY 12/07/16 12/11/16 History [Vitamin B-12] Warfarin [Coumadin] 5 mg PO DIRECTED 12/07/16 12/11/16 History Doxycycline Hyclate [Vibramycin] 100 mg PO BID 12/11/16 12/11/16 History Levothyroxine Sodium [Synthroid] 88 mcg PO MOTUWETHFRSA 12/11/16 12/11/16 History Loperamide [Imodium] 2 mg PO DAILY PRN 12/11/16 12/11/16 History Allergies Allergy/AdvReac Type Severity Reaction Status Date / Time niacin Allergy Rash/Hives Verified 12/11/16 13:58 [From Niaspan Extended-Release] Penicillins Allergy Rash/Hives Verified 12/11/16 13:58 Sulfa (Sulfonamide Allergy Swelling Verified 12/11/16 13:58 Antibiotics) Physical Exam Vitals: Vital Signs Temp Pulse Pulse Resp BP BP Pulse Ox 12/12/16 12:00 74 18 118/72 90 L 12/12/16 09:00 97.0 F L 112 H 18 122/75 90 L 12/12/16 04:00 96.8 F L 77 16 113/53 100 12/12/16 00:00 75 16 115/63 95 12/11/16 20:00 96.9 F L 86 18 112/72 90 L 12/11/16 17:48 97.0 F L 110 H 20 140/81 93 L 12/11/16 17:38 110 H 20 12/11/16 17:00 98.7 F 107 H 142/80 94 L 12/11/16 16:50 97.0 F L 110 H 20 140/81 12/11/16 16:13 93 L Intake and Output 12/12/16 12/12/16 12/12/16 06:59 14:59 22:59 Intake Total 960 318 Output Total 1100 Balance 960 318 -1100 Intake: Intake, IV Titration 960 Amount Sodium Chloride 0.9% 1, 960 000 ml @ 120 mls/hr IV . Q8H20M [facility] Rx#:[id number] Oral 318 Output: Urine 1100 Other: Voiding Method Toilet # Voids 1 Weight 94.8 kg - Constitutional General appearance: no average body habitus, cooperative, no disheveled, no mild distress, no morbidly obese, no acute distress, no obese, no severe distress, no thin - EENT Eyes: no abnormal pupil, no anicteric sclerae, no disc margins sharp, no edentulous, no EOMI, no PERRLA, no fundus normal, no photophobia, no dentition normal, no poor dentition, no ptosis, no scleral icterus, normal appearance ENT: no hard of hearing, no hearing grossly normal, no NA/AT, normal oropharynx , no other, pharyngeal erythema, no thrush, no tonsillar exudates, no tonsillar swelling Ears: bilateral: normal - Neck Neck: no lymphadenopathy, normal ROM, no other, no rigidity, no stridor, no thyromegaly Carotids: bilateral: upstroke normal Thyroid: bilateral: normal size - Respiratory Respiratory: bilateral: CTA, diminished, dullness, rales, rhonchi - Cardiovascular Rhythm: regular Heart sounds: normal: S1, S2 Abnormal Heart Sounds: systolic murmur, diastolic murmur, S3 Gallop - Gastrointestinal General gastrointestinal: no absent bowel sounds, decreased bowel sounds, no distended, no hepatomegaly, no hyperactive bowel sounds, normal bowel sounds, no organomegaly, no rigid, no scaphoid, no soft, no splenomegaly, no tenderness , no umbilical hernia, no ventral hernia - Integumentary Integumentary: no calor, no cellulitis, no cyanotic, no decreased turgor, no flushed, no jaundiced, normal, no normal turgor, pale, rash, no ulcer - Neurologic Neurologic: CNII-XII intact - Musculoskeletal Musculoskeletal: gait normal, generalized weakness, strength equal bilaterally - Psychiatric Psychiatric: A&O x's 3, appropriate affect Results CBC & Chem 7: 12/12/16 05:31 12/12/16 05:31 Labs: Abnormal Lab Results - Last 24 Hours (Table) 12/11/16 12/11/16 12/11/16 Range/Units 17:24 20:33 21:15 RBC (3.80-5.40) m/uL Hgb (11.4-16.0) gm/dL RDW (11.5-15.5) % BUN (7-17) mg/dL Glucose (74-99) mg/dL POC Glucose (mg/dL) 139 H 150 H (75-99) mg/dL Troponin I (0.000-0.034) ng/mL Total Protein (6.3-8.2) g/dL Albumin (3.5-5.0) g/dL Ur Leukocyte Esterase Moderate H (Negative) Urine WBC 6 H (0-5) /hpf Urine Bacteria Rare H (None) /hpf Hyaline Casts 4 H (0-2) /lpf Urine Mucus Rare H (None) /hpf 12/12/16 12/12/16 12/12/16 Range/Units 00:21 02:47 05:31 RBC 3.64 L (3.80-5.40) m/uL Hgb 10.7 L (11.4-16.0) gm/dL RDW 16.8 H (11.5-15.5) % BUN (7-17) mg/dL Glucose (74-99) mg/dL POC Glucose (mg/dL) 74 L (75-99) mg/dL Troponin I 0.038 H* (0.000-0.034) ng/mL Total Protein (6.3-8.2) g/dL Albumin (3.5-5.0) g/dL Ur Leukocyte Esterase (Negative) Urine WBC (0-5) /hpf Urine Bacteria (None) /hpf Hyaline Casts (0-2) /lpf Urine Mucus (None) /hpf 12/12/16 12/12/16 12/12/16 Range/Units 05:31 06:07 11:45 RBC (3.80-5.40) m/uL Hgb (11.4-16.0) gm/dL RDW (11.5-15.5) % BUN 18 H (7-17) mg/dL Glucose 132 H (74-99) mg/dL POC Glucose (mg/dL) 140 H 158 H (75-99) mg/dL Troponin I (0.000-0.034) ng/mL Total Protein 6.1 L (6.3-8.2) g/dL Albumin 3.4 L (3.5-5.0) g/dL Ur Leukocyte Esterase (Negative) Urine WBC (0-5) /hpf Urine Bacteria (None) /hpf Hyaline Casts (0-2) /lpf Urine Mucus (None) /hpf Microbiology - Last 24 Hours (Table) 12/11/16 13:15 Stool for WBCs - Final Stool 12/11/16 13:15 Stool Culture - Preliminary Stool Thrombosis Risk Factor Assmnt - DVT/VTE Prophylaxis DVT/VTE Prophylaxis: Pharmacologic Prophylaxis ordered, Mechanical Prophylaxis ordered - Choose All That Apply Any of the Below Risk Factors Present?: Yes Each Factor Represents 1 point: Obesity (BMI >25) Other Risk Factors: Yes Each Risk Factor Represents 2 Points: Age 61-74 years Thrombosis Risk Factor Assessment Total Risk Factor Score: 3 Thrombosis Risk Factor Assessment Level: Moderate Risk Assessment and Plan Plan: 1 acute gastroenteritis: With intractable nausea vomiting and diarrhea, continue current treatment management continue Questran along with Lomotil continue hydration watch for any further symptoms. 2 severe diarrhea: With possible C. diff infection, C. diff culture was done negative so far will add Flagyl if needed if the symptom persistent in the meanwhile continue Questran and Lomotil. 3 severe aortic stenosis: Patient was supposed to have heart catheter and NEIL and prepare for her expected surgery coming in January at [facility]. 4 chronic A. fib with RVR: With her prosthetic valve patient will need to go back on her anticoagulation which should be started today we'll continue to watch her wrap INR and daily basis. 5 UTI: Culture was done patient is on doxycycline from the office continue medication for now. 6 type 2 diabetes: Has been on Glucotrol, metformin and Januvia continue Accu- Chek with sliding scales coverage. 7 hyperlipidemia: Remain on Lipitor. 8 hypertension: Has been on Lopressor along with Zestril. 9 hypothyroidism: Resume Synthroid as before. 10 GI prophylaxis: Patient will be on Pepcid 20 mg daily. 11 DVT prophylaxis: Patient is back on anticoagulation. CODE STATUS: Full code. Expectation from this admission: Patient be in the hospital for more than 2 nights.
--- NOTE | 2016-12-12 20:44 | P.CNNES ---
History of Present Illness Consult date: 12/12/16 History of Present Illness: The patient is a 71-year-old right-handed white female who states that last she was given an antibiotic for urinary tract infection. The following day she developed diarrhea and this continued for 2 days. She states that it gradually got better on Monday but when her son came over he felt he felt that she was walking a little shakily and her speech might of been slurred. She herself does not feel her speech was slurred. She states she was weak from having so much dehydration from diarrhea and also she had had some nausea and vomiting. Son brought her to the emergency room. She was admitted to the hospital with acute diarrhea and UTI. Neurology was called to see the patient regarding dysarthria. The patient denies any dysarthria. She states that she only had some dryness of mouth patient denied any focal weakness numbness visual disturbance speech disturbance or facial droop. Patient has a history of artificial cardiac valve and she will be going shortly for NEIL at [facility]. She is currently on Coumadin. 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 His mild atrophy and chronic ischemic white matter changes Review of Systems Constitutional: Denies chills, Denies fever Eyes: denies blurred vision, denies pain Ears, nose, mouth and throat: Denies headache, Denies sore throat Cardiovascular: Denies chest pain, Denies shortness of breath Respiratory: Denies cough Gastrointestinal: Denies abdominal pain, Denies diarrhea, Denies nausea, Denies vomiting Musculoskeletal: Denies myalgias Neurological: Denies numbness, Denies weakness Psychiatric: Denies anxiety, Denies depression Past Medical History Past Medical History: Cancer, Diabetes Mellitus, Hyperlipidemia, Hypertension, Myocardial Infarction ([place]), Osteoarthritis (OA), Sleep Apnea/CPAP/BIPAP, Thyroid Disorder Additional Past Medical History / Comment(s): hx uterine cancer, uses cpap Last Myocardial Infarction Date:: 2014? History of Any Multi-Drug Resistant Organisms: None Reported Past Surgical History: Cardiac Valve Replacement, Coronary Bypass/CABG, Heart Catheterization, Hysterectomy, Joint Replacement, Tubal Ligation Additional Past Surgical History / Comment(s): x3 cath, lap band 2006, right hip 2009 with revision,[email or web address], radiation 2009 for uterine cancer Past Anesthesia/Blood Transfusion Reactions: No Reported Reaction Additional Past Anesthesia/Blood Transfusion Reaction / Comment(s): difficulty waking up Past Psychological History: No Psychological Hx Reported Smoking Status: Never smoker Past Alcohol Use History: None Reported Past Drug Use History: None Reported - Past Family History Father Family Medical History: Deep Vein Thrombosis (DVT) Sister(s) Family Medical History: Cancer Mother Family Medical History: Deep Vein Thrombosis (DVT) Medications and Allergies Home Medications Medication Instructions Recorded Confirmed Type Aspirin EC [Ecotrin Low Dose] 81 mg PO BID 11/11/16 12/11/16 History Atorvastatin [Lipitor] 80 mg PO DAILY 11/11/16 12/11/16 History Cholecalciferol (Vitamin D3) 2,000 unit PO DAILY 11/11/16 12/11/16 History [Vitamin D3] Furosemide [Lasix] 40 mg PO DAILY 11/11/16 12/11/16 History Lisinopril [Zestril] 5 mg PO DAILY 11/11/16 12/11/16 History Magnesium Oxide [Mag-Ox] 400 mg PO BID 11/11/16 12/11/16 History Metoprolol Tartrate [Lopressor] 25 mg PO BID 11/11/16 12/11/16 History Multivitamins, Thera [Multivitamin 1 tab PO DAILY 11/11/16 12/11/16 History (formulary)] glipiZIDE [Glucotrol] 5 mg PO BID 11/11/16 12/11/16 History metFORMIN HCL [metFORMIN HCL ER] 1,000 mg PO BID 11/11/16 12/11/16 History sitaGLIPtin [Januvia] 100 mg PO DAILY 11/11/16 12/11/16 History Cyanocobalamin (Vitamin B-12) 1,000 mcg PO DAILY 12/07/16 12/11/16 History [Vitamin B-12] Warfarin [Coumadin] 5 mg PO DIRECTED 12/07/16 12/11/16 History Doxycycline Hyclate [Vibramycin] 100 mg PO BID 12/11/16 12/11/16 History Levothyroxine Sodium [Synthroid] 88 mcg PO MOTUWETHFRSA 12/11/16 12/11/16 History Loperamide [Imodium] 2 mg PO DAILY PRN 12/11/16 12/11/16 History Allergies Allergy/AdvReac Type Severity Reaction Status Date / Time niacin Allergy Rash/Hives Verified 12/11/16 13:58 [From Niaspan Extended-Release] Penicillins Allergy Rash/Hives Verified 12/11/16 13:58 Sulfa (Sulfonamide Allergy Swelling Verified 12/11/16 13:58 Antibiotics) Physical Examination - Vital Signs Vital Signs: Vital Signs Temp Pulse Resp BP Pulse Ox 12/12/16 16:13 91 L 12/12/16 16:00 97.1 F L 78 16 119/66 91 L 12/12/16 12:00 74 18 118/72 90 L 12/12/16 09:00 97.0 F L 112 H 18 122/75 90 L 12/12/16 04:00 96.8 F L 77 16 113/53 100 12/12/16 00:00 75 16 115/63 95 Intake and Output 12/12/16 12/12/16 12/12/16 06:59 14:59 22:59 Intake Total 960 318 118 Output Total 1100 Balance 960 318 -982 Intake: Intake, IV Titration 960 Amount Sodium Chloride 0.9% 1, 960 000 ml @ 120 mls/hr IV . Q8H20M [facility] Rx#:[id number] Oral 318 118 Output: Urine 1100 Other: Voiding Method Toilet Bedside Commode # Voids 1 Weight 94.8 kg - Constitutional General appearance: cooperative - EENT EENT: hearing intact, vision intact - Respiratory Respiratory: lungs clear - Cardiovascular Cardiovascular: regular rate, normal S1, normal S2 - Integumentary Integumentary: normal - Neurologic Status she was awake alert and oriented chance of questions appropriately there was no a aphasia or dysarthria Cranial nerve examination: PERRL, EOMI, VFF, face symmetric, tongue midline Speech examination: intact Sensorimotor examination: intact Detailed motor examination: grossly full strength in all extremities - Psychiatric Psychiatric: mood/affect appropriate Results - Laboratory Findings CBC and BMP: 12/12/16 05:31 12/12/16 05:31 Abnormal Lab Findings: Abnormal Labs 12/11/16 12/11/16 12/11/16 12:52 12:52 12:52 RBC Hgb RDW 16.7 H PT 19.2 H INR 2.0 H BUN 23 H Glucose POC Glucose (mg/dL) AST 38 H Troponin I Total Protein Albumin Amylase <30 L Ur Leukocyte Esterase Urine WBC Urine Bacteria Hyaline Casts Urine Mucus 12/11/16 12/11/16 12/11/16 17:24 20:33 21:15 RBC Hgb RDW PT INR BUN Glucose POC Glucose (mg/dL) 139 H 150 H AST Troponin I Total Protein Albumin Amylase Ur Leukocyte Esterase Moderate H Urine WBC 6 H Urine Bacteria Rare H Hyaline Casts 4 H Urine Mucus Rare H 12/12/16 12/12/16 12/12/16 00:21 02:47 05:31 RBC 3.64 L Hgb 10.7 L RDW 16.8 H PT INR BUN Glucose POC Glucose (mg/dL) 74 L AST Troponin I 0.038 H* Total Protein Albumin Amylase Ur Leukocyte Esterase Urine WBC Urine Bacteria Hyaline Casts Urine Mucus 12/12/16 12/12/16 12/12/16 05:31 06:07 11:45 RBC Hgb RDW PT INR BUN 18 H Glucose 132 H POC Glucose (mg/dL) 140 H 158 H AST Troponin I Total Protein 6.1 L Albumin 3.4 L Amylase Ur Leukocyte Esterase Urine WBC Urine Bacteria Hyaline Casts Urine Mucus Assessment and Plan (1) History of dysarthria Status: Acute Code(s): Z87.898 - PERSONAL HISTORY OF OTHER SPECIFIED CONDITIONS (2) Acute diarrhea Status: Acute Code(s): R19.7 - DIARRHEA, UNSPECIFIED (3) UTI (urinary tract infection) Status: Acute Code(s): N39.0 - URINARY TRACT INFECTION, SITE NOT SPECIFIED Plan: The patient is a 71-year-old woman with history of recent infection started on antibiotics and developed diarrhea. She had been dehydrated over the last few days. The neurology is requested the patient regarding episode of dysarthria which may have occurred yesterday. She had a CT of the brain which showed no acute abnormality. The patient reports that she did not have any speech disturbance. Her son however felt that she might of had some dysarthria. She had a carotid ultrasound which suggested 50-69% stenosis in the left ICA and vascular consultation and follow-up carotid in 6 months . The patient has chronic A. fib and is on Coumadin with an INR of 2.0
[2016-12-12 21:11] LABS: Glucose,Whole Blood 156 mg/dL (75-99)
[2016-12-12] MEDS: ASPIRIN 81 MG PO SCH (21:20)
[2016-12-13 00:13] VITALS: RESP 18
[2016-12-13] MEDS: LEVOTHYROXINE 88 MCG TAB PO SCH (06:38)
[2016-12-13] MEDS: PANTOPRAZOLE 40 MG TABLET PO SCH (06:39)
[2016-12-13] MEDS: SODIUM CHLORIDE 0.9% 1,000 ML IV SCH ×3 (06:39→15:54)
[2016-12-13 06:49] LABS: Anisocytosis Slight; Basophils % (A) 0 %; CH 29.9; CHCM 32.2; Eosinophils # (A) 0.1 k/uL (0-0.7); Eosinophils % (A) 2 %; HCT 32.1 % (34.0-46.0); HDW 3.01; HGB 10.2 gm/dL (11.4-16.0); Hypochromasia Slight; Luc # (Auto) 0.08; Luc % (Auto) 1; Lymphocytes # (A) 0.9 k/uL (1.0-4.8); Lymphocytes % (A) 14 %; MCH 29.6 pg (25.0-35.0); MCHC 31.7 g/dL (31.0-37.0); MCV 93.5 fL (80.0-100.0); Mean Platelet Volume 9.5; Monocytes # (A) 0.5 k/uL (0-1.0); Monocytes % (A) 8 %; Neutrophils % (A) 75 %; RBC 3.44 m/uL (3.80-5.40); WBC 6.7 k/uL (3.8-10.6); WBC (Perox) 7.34
[2016-12-13 06:57] LABS: Prothrombin Time 19.2 sec (9.0-12.0)
[2016-12-13 07:09] LABS: ALT 33 U/L (9-52); AST 33 U/L (14-36); Alkaline Phosphatase 81 U/L (38-126); Anion Gap 8 mmol/L; Blood Urea Nitrogen 17 mg/dL (7-17); Calcium 8.5 mg/dL (8.4-10.2); Carbon Dioxide 24 mmol/L (22-30); Chloride 109 mmol/L (98-107); Glucose 119 mg/dL (74-99); Non-African American GFR(MDRD) >60 (>60 ml/min/1.73 sqM); Potassium 4.1 mmol/L (3.5-5.1); Sodium 141 mmol/L (137-145); Total Bilirubin 1.1 mg/dL (0.2-1.3); Total Protein 6.1 g/dL (6.3-8.2)
[2016-12-13] MEDS: ASPIRIN 81 MG PO SCH ×2 (09:08→21:55)
[2016-12-13] MEDS: ATORVASTATIN 80 MG TAB PO SCH (09:08)
[2016-12-13] MEDS: CHOLECALCIFEROL 1,000 UNIT TAB PO SCH (09:09)
[2016-12-13] MEDS: CYANOCOBALAMIN 500 MCG TAB PO SCH (09:09)
[2016-12-13] MEDS: DOXYCYCLINE 50 MG CAP PO SCH ×2 (09:10→21:55)
[2016-12-13] MEDS: FUROSEMIDE 40 MG TAB PO SCH (09:10)
[2016-12-13] MEDS: glipiZIDE 5 MG TAB PO SCH ×2 (09:10→21:55)
[2016-12-13] MEDS: LISINOPRIL 5 MG TAB PO SCH (09:11)
[2016-12-13] MEDS: LINAGLIPTIN 5 MG TABLET PO SCH (09:11)
[2016-12-13] MEDS: metFORMIN 500 MG TAB PO SCH ×2 (09:12→21:54)
[2016-12-13] MEDS: MAGNESIUM OXIDE 400 MG TAB PO SCH ×2 (09:12→21:55)
[2016-12-13] MEDS: METOPROLOL TARTRATE 25 MG TAB PO SCH ×2 (09:12→21:55)
[2016-12-13] MEDS: MULTIVITAMINS, THERA 1 EACH TAB PO SCH (09:13)
--- NOTE | 2016-12-13 11:27 | P.PN ---
Subjective 71-year-old female one of Dr. Scott's patient who apparently was scheduled with Dr. Del Toro to have heart catheter and transesophageal echocardiogram for possible going for aortic valve placement and possible mitral valve placement at [facility]. Patient apparently was seen in the office on and had UTI was started on doxycycline she developed significant abdominal discomfort with nausea vomiting and severe diarrhea he come quite bit dehydrated lightheaded and dizzy developed to have mild chest tightness and pressure. Patient ended up coming to the emergency department at [facility] with above problem was seen and evaluated could not slowdown diarrhea or nausea vomiting and started having more symptoms found to have A. fib with RVR in her EKG decided to admit patient to the hospital seeing cardiology as an inpatient and plan where anticoagulation to resume it for now because would not be able to go for heart catheter till her diarrhea and GI symptoms are better. Patient still very lightheaded and dizzy not been able to ambulate and walk still symptomatic with the severe diarrhea C. diff came back negative for the time ration will be started on Questran along with Lomotil [id number] till her symptoms are better still been treated for an existing UTI with doxycycline. 12/13: Patient was seen and evaluated today she was noted be sitting up in the chair. She reports her diarrhea has completely resolved and she is tolerating by mouth food and fluids with no nausea or vomiting. Stool cultures were negative for C. diff. Cardiology was consulted cardiac cath postponed. She has had a carotid ultrasound which suggested 50-60% stenosis of the left ICA. Neurology has been consulted for her dysarthria, currently has resolved. The patient will advance diet as tolerated today and ambulate with plan to discharge tomorrow. Objective - Vital Signs Vital signs: Vital Signs Temp 97.0 F L 12/13/16 04:00 Pulse 87 12/13/16 04:00 Resp 18 12/13/16 04:00 BP 118/57 12/13/16 04:00 Pulse Ox 94 L 12/13/16 04:00 Intake & Output 12/12/16 12/13/16 12/13/16 18:59 06:59 18:59 Intake Total 436 237 Output Total 1100 480 200 Balance -664 -480 37 Weight 96.1 kg Intake: Oral 436 237 Output: Urine 1100 480 200 Other: Voiding Method Bedside Commode Bedside Commode # Voids 1 - Exam - Constitutional General appearance: no average body habitus, cooperative, no disheveled, no mild distress, no morbidly obese, no acute distress, no obese, no severe distress, no thin - EENT Eyes: no abnormal pupil, no anicteric sclerae, no disc margins sharp, no edentulous, no EOMI, no PERRLA, no fundus normal, no photophobia, no dentition normal, no poor dentition, no ptosis, no scleral icterus, normal appearance ENT: no hard of hearing, no hearing grossly normal, no NA/AT, normal oropharynx , no other, pharyngeal erythema, no thrush, no tonsillar exudates, no tonsillar swelling Ears: bilateral: normal - Neck Neck: no lymphadenopathy, normal ROM, no other, no rigidity, no stridor, no thyromegaly Carotids: bilateral: upstroke normal Thyroid: bilateral: normal size - Respiratory Respiratory: bilateral: CTA, diminished, dullness, rales, rhonchi - Cardiovascular Rhythm: regular Heart sounds: normal: S1, S2 Abnormal Heart Sounds: systolic murmur, diastolic murmur, S3 Gallop - Gastrointestinal General gastrointestinal: no absent bowel sounds, decreased bowel sounds, no distended, no hepatomegaly, no hyperactive bowel sounds, normal bowel sounds, no organomegaly, no rigid, no scaphoid, no soft, no splenomegaly, no tenderness , no umbilical hernia, no ventral hernia - Integumentary Integumentary: no calor, no cellulitis, no cyanotic, no decreased turgor, no flushed, no jaundiced, normal, no normal turgor, pale, rash, no ulcer - Neurologic Neurologic: CNII-XII intact - Musculoskeletal Musculoskeletal: gait normal, generalized weakness, strength equal bilaterally - Psychiatric Psychiatric: A&O x's 3, appropriate affect - Labs CBC & Chem 7: 12/13/16 06:31 12/13/16 06:31 Labs: Abnormal Lab Results - Last 24 Hours (Table) 12/12/16 12/12/16 12/13/16 Range/Units 11:45 21:09 06:31 RBC (3.80-5.40) m/uL Hgb (11.4-16.0) gm/dL Hct (34.0-46.0) % RDW (11.5-15.5) % Lymphocytes # (1.0-4.8) k/uL PT 19.2 H (9.0-12.0) sec INR 2.0 H (<1.2) Chloride (98-107) mmol/L Glucose (74-99) mg/dL POC Glucose (mg/dL) 158 H 156 H (75-99) mg/dL Total Protein (6.3-8.2) g/dL Albumin (3.5-5.0) g/dL 12/13/16 12/13/16 Range/Units 06:31 06:31 RBC 3.44 L (3.80-5.40) m/uL Hgb 10.2 L (11.4-16.0) gm/dL Hct 32.1 L (34.0-46.0) % RDW 18.0 H (11.5-15.5) % Lymphocytes # 0.9 L (1.0-4.8) k/uL PT (9.0-12.0) sec INR (<1.2) Chloride 109 H (98-107) mmol/L Glucose 119 H (74-99) mg/dL POC Glucose (mg/dL) (75-99) mg/dL Total Protein 6.1 L (6.3-8.2) g/dL Albumin 3.4 L (3.5-5.0) g/dL Assessment and Plan Plan: 1 acute gastroenteritis: With intractable nausea vomiting and diarrhea, continue current treatment management continue Questran along with Lomotil continue hydration watch for any further symptoms, symptoms are improving, patient is tolerating by mouth fluid and foods. 2 severe diarrhea: With possible C. diff infection, C. diff culture was done negative so far will add Flagyl if needed if the symptom persistent in the meanwhile continue Questran and Lomotil. Diarrhea has completely resolved, will watch for signs of recurrence. 3 severe aortic stenosis: Patient was supposed to have heart catheter and NEIL and prepare for her expected surgery coming in January at [facility]. 4 chronic A. fib with RVR: With her prosthetic valve patient will need to go back on her anticoagulation which should be started today we'll continue to watch her wrap INR and daily basis. 5 UTI: Culture was done patient is on doxycycline from the office continue medication for now. 6 type 2 diabetes: Has been on Glucotrol, metformin and Januvia continue Accu- Chek with sliding scales coverage. 7 hyperlipidemia: Remain on Lipitor. 8 hypertension: Has been on Lopressor along with Zestril. 9 hypothyroidism: Resume Synthroid as before. 10 GI prophylaxis: Patient will be on Pepcid 20 mg daily. 11 DVT prophylaxis: Patient is back on anticoagulation. CODE STATUS: Full code. The above impression and plan of care have been discussed and directed by signing physician. Iris Feliciano nurse practitioner acting as scribe for signing physician.
--- NOTE | 2016-12-13 14:31 | P.PN ---
Subjective Principal diagnosis: Diarrhea This is a 71-year-old female patient with known history of coronary artery disease and prior bypass surgery, status post aortic valve replacement, mitral stenosis, who recently underwent a NEIL and since then has been evaluated at the [facility] for redo aortic valve surgery as well as mitral valve replacement. She was also scheduled as an outpatient to undergo cardiac catheterization on . Patient developed symptoms of UTI as an outpatient and was initiated on antibiotics, subsequent to that she has had several diarrhea stools and for this reason came to the emergency room for admission. Patient does have history of chronic atrial fibrillation and is on Coumadin for this. At the time of my examination this morning, patient has had no further episodes of diarrhea. Denies any chest pain, breathing is stable. Blood pressure 120/70, heart rate in the 90s. Hemoglobin 10.2, platelet count 158, INR 2.0, BUN 17, creatinine 0.6. Objective - Vital Signs Vital signs: Vital Signs Temp 97.0 F L 12/13/16 08:00 Pulse 113 H 12/13/16 08:00 Resp 18 12/13/16 08:00 BP 119/69 12/13/16 08:00 Pulse Ox 94 L 12/13/16 08:00 Intake & Output 12/12/16 12/13/16 12/13/16 18:59 06:59 18:59 Intake Total 436 237 Output Total 1100 480 500 Balance -664 -480 -263 Weight 96.1 kg Intake: Oral 436 237 Output: Urine 1100 480 500 Other: Voiding Method Bedside Commode Bedside Commode Bedside Commode # Voids 1 - Exam PHYSICAL EXAMINATION: HEENT: Head is atraumatic, normocephalic. Pupils equal, round. Neck is supple. There is no elevated jugular venous pressure. HEART EXAMINATION: Heart S1 and S2 irregular irregular a grade 4/6 systolic ejection murmur is heard, systolic murmur heard at the apex CHEST EXAMINATION: Lungs are clear to auscultation and precussion. No chest wall tenderness is noted on palpation or with deep breathing. ABDOMEN: Soft, nontender. Bowel sounds are heard. No organomegaly noted. EXTREMITIES: 2+ peripheral pulses with no evidence of peripheral edema and no calf tenderness noted. NEUROLOGIC patient is awake, alert and oriented -3. . - Labs CBC & Chem 7: 12/13/16 06:31 12/13/16 06:31 Labs: Abnormal Lab Results - Last 24 Hours (Table) 12/12/16 12/13/16 12/13/16 Range/Units 21:09 06:31 06:31 RBC 3.44 L (3.80-5.40) m/uL Hgb 10.2 L (11.4-16.0) gm/dL Hct 32.1 L (34.0-46.0) % RDW 18.0 H (11.5-15.5) % Lymphocytes # 0.9 L (1.0-4.8) k/uL PT 19.2 H (9.0-12.0) sec INR 2.0 H (<1.2) Chloride (98-107) mmol/L Glucose (74-99) mg/dL POC Glucose (mg/dL) 156 H (75-99) mg/dL Total Protein (6.3-8.2) g/dL Albumin (3.5-5.0) g/dL 12/13/16 Range/Units 06:31 RBC (3.80-5.40) m/uL Hgb (11.4-16.0) gm/dL Hct (34.0-46.0) % RDW (11.5-15.5) % Lymphocytes # (1.0-4.8) k/uL PT (9.0-12.0) sec INR (<1.2) Chloride 109 H (98-107) mmol/L Glucose 119 H (74-99) mg/dL POC Glucose (mg/dL) (75-99) mg/dL Total Protein 6.1 L (6.3-8.2) g/dL Albumin 3.4 L (3.5-5.0) g/dL Assessment and Plan (1) Hx of CABG Status: Acute (2) Hx of aortic valve replacement Status: Acute (3) Chronic a-fib Status: Acute (4) Severe calcific aortic valve stenosis Status: Acute (5) Mitral stenosis Status: Acute (6) Acute diarrhea Status: Acute (7) UTI (urinary tract infection) Status: Acute Plan: From cardiology's perspective, we will continue the patient's current home medications. Continue to monitor INR closely as the patient is on antibiotics. Cardiac catheterization has presently been postponed. Once the patient is feeling better overall distal be performed as an outpatient. Patient will be contacted by the office regarding the timing of this. DNP note has been reviewed, I agree with a documented findings and plan of care. Patient was seen and examined.
[2016-12-13 15:54] LABS: Glucose,Whole Blood 97 mg/dL (75-99)
[2016-12-13 16:57] LABS: Glucose,Whole Blood 114 mg/dL (75-99)
[2016-12-13] MEDS ORDERED: WARFARIN 5 MG TAB PO SCH (18:00)
[2016-12-13 20:53] LABS: Glucose,Whole Blood 145 mg/dL (75-99)
[2016-12-14 03:39] VITALS: TEMP 97
[2016-12-14] MEDS: SODIUM CHLORIDE 0.9% 1,000 ML IV SCH ×2 (03:43→09:43)
[2016-12-14 06:12] LABS: Glucose,Whole Blood 85 mg/dL (75-99)
[2016-12-14] MEDS: PANTOPRAZOLE 40 MG TABLET PO SCH (06:36)
[2016-12-14] MEDS: LEVOTHYROXINE 88 MCG TAB PO SCH (06:36)
[2016-12-14 06:44] LABS: Anisocytosis Slight; Basophils % (A) 0 %; CH 29.6; CHCM 31.7; Eosinophils # (A) 0.2 k/uL (0-0.7); Eosinophils % (A) 3 %; HCT 30.8 % (34.0-46.0); HDW 3.06; HGB 9.7 gm/dL (11.4-16.0); Hypochromasia Slight; Luc # (Auto) 0.09; Luc % (Auto) 1; Lymphocytes # (A) 1.1 k/uL (1.0-4.8); Lymphocytes % (A) 17 %; MCH 29.6 pg (25.0-35.0); MCHC 31.5 g/dL (31.0-37.0); Mean Platelet Volume 9.5; Monocytes # (A) 0.5 k/uL (0-1.0); Monocytes % (A) 7 %; Neutrophils # (A) 4.4 k/uL (1.3-7.7); Neutrophils % (A) 70 %; RBC 3.28 m/uL (3.80-5.40); WBC 6.3 k/uL (3.8-10.6); WBC (Perox) 6.16
[2016-12-14 06:47] LABS: INR 2.3 (<1.2); Prothrombin Time 22.5 sec (9.0-12.0)
[2016-12-14 08:12] LABS: Anion Gap 9 mmol/L; Blood Urea Nitrogen 18 mg/dL (7-17); Calcium 8.7 mg/dL (8.4-10.2); Carbon Dioxide 24 mmol/L (22-30); Chloride 107 mmol/L (98-107); Glucose 77 mg/dL (74-99); Magnesium 1.7 mg/dL (1.6-2.3); Non-African American GFR(MDRD) >60 (>60 ml/min/1.73 sqM); Potassium 3.9 mmol/L (3.5-5.1); Sodium 140 mmol/L (137-145)
[2016-12-14 09:29] VITALS: BP 134/63
[2016-12-14] MEDS: FUROSEMIDE 40 MG TAB PO SCH (09:30)
[2016-12-14] MEDS: ATORVASTATIN 80 MG TAB PO SCH (09:31)
[2016-12-14] MEDS: DOXYCYCLINE 50 MG CAP PO SCH (09:31)
[2016-12-14] MEDS: ASPIRIN 81 MG PO SCH (09:31)
[2016-12-14] MEDS: glipiZIDE 5 MG TAB PO SCH (09:31)
[2016-12-14] MEDS: CHOLECALCIFEROL 1,000 UNIT TAB PO SCH (09:32)
[2016-12-14] MEDS: CYANOCOBALAMIN 500 MCG TAB PO SCH (09:32)
[2016-12-14] MEDS: metFORMIN 500 MG TAB PO SCH (09:33)
[2016-12-14] MEDS: LISINOPRIL 5 MG TAB PO SCH (09:33)
[2016-12-14] MEDS: MAGNESIUM OXIDE 400 MG TAB PO SCH (09:33)
[2016-12-14] MEDS: LINAGLIPTIN 5 MG TABLET PO SCH (09:33)
[2016-12-14] MEDS: MULTIVITAMINS, THERA 1 EACH TAB PO SCH (09:36)
[2016-12-14] MEDS: METOPROLOL TARTRATE 25 MG TAB PO SCH (09:36)
[2016-12-14 10:43] VITALS: PULSE 66
--- NOTE | 2016-12-14 11:22 | P.DS ---
Providers Date of admission: 12/11/16 16:27 Expected date of discharge: 12/14/16 Attending physician: Sandee Sharpe Consults: 12/11/16 16:10 Consult Physician Stat Consulting Provider: Elias Lemus Consult Reason/Comments: Future Cardiac Cath, Afib, TIA symptoms Do you want consulting provider notified?: Yes 12/12/16 11:53 Consult Physician Stat Consulting Provider: Pop Xiong Consult Reason/Comments: history of dysarthria Do you want consulting provider notified?: Yes Primary care physician: Zonia Scott [facility] Course: 71-year-old female one of Dr. Scott's patient who apparently was scheduled with Dr. Del Toro to have heart catheter and transesophageal echocardiogram for possible going for aortic valve placement and possible mitral valve placement at [facility]. Patient apparently was seen in the office on and had UTI was started on doxycycline she developed significant abdominal discomfort with nausea vomiting and severe diarrhea he come quite bit dehydrated lightheaded and dizzy developed to have mild chest tightness and pressure. Patient ended up coming to the emergency department at [facility] with above problem was seen and evaluated could not slowdown diarrhea or nausea vomiting and started having more symptoms found to have A. fib with RVR in her EKG decided to admit patient to the hospital seeing cardiology as an inpatient and plan where anticoagulation to resume it for now because would not be able to go for heart catheter till her diarrhea and GI symptoms are better. Patient still very lightheaded and dizzy not been able to ambulate and walk still symptomatic with the severe diarrhea C. diff came back negative for the time ration will be started on Questran along with Lomotil [id number] till her symptoms are better still been treated for an existing UTI with doxycycline. 12/13: Patient was seen and evaluated today she was noted be sitting up in the chair. She reports her diarrhea has completely resolved and she is tolerating by mouth food and fluids with no nausea or vomiting. Stool cultures were negative for C. diff. Cardiology was consulted cardiac cath postponed. She has had a carotid ultrasound which suggested 50-60% stenosis of the left ICA. Neurology has been consulted for her dysarthria, currently has resolved. The patient will advance diet as tolerated today and ambulate with plan to discharge tomorrow. 12/14: Patient has not had any further episodes of diarrhea. Again she is tolerating food and fluids well with no nausea or vomiting. Stool cultures were negative, vital signs are stable, hemoglobin remained stable at 10.2. She will follow-up with cardiology on an outpatient basis and reschedule her cardiac cath. She'll continue the doxycycline until gone for her UTI. Discharge diagnoses 1 acute gastroenteritis 2 severe diarrhea 3 severe aortic stenosis 4 chronic A. fib with RVR 5 UTI 6 type 2 diabetes 7 hyperlipidemia 8 hypertension 9 hypothyroidism The above impression and plan of care have been discussed and directed by signing physician. Iris Feliciano nurse practitioner acting as scribe for signing physician. Patient Condition at Discharge: Stable Plan - Discharge Summary New Discharge Prescriptions: No Action Magnesium Oxide [Mag-Ox] 400 mg PO BID Multivitamins, Thera [Multivitamin (formulary)] 1 tab PO DAILY Atorvastatin [Lipitor] 80 mg PO DAILY Aspirin EC [Ecotrin Low Dose] 81 mg PO BID sitaGLIPtin [Januvia] 100 mg PO DAILY Metoprolol Tartrate [Lopressor] 25 mg PO BID Lisinopril [Zestril] 5 mg PO DAILY Furosemide [Lasix] 40 mg PO DAILY metFORMIN HCL [metFORMIN HCL ER] 1,000 mg PO BID glipiZIDE [Glucotrol] 5 mg PO BID Cholecalciferol (Vitamin D3) [Vitamin D3] 2,000 unit PO DAILY Cyanocobalamin (Vitamin B-12) [Vitamin B-12] 1,000 mcg PO DAILY Warfarin [Coumadin] 5 mg PO DIRECTED Doxycycline Hyclate [Vibramycin] 100 mg PO BID Levothyroxine Sodium [Synthroid] 88 mcg PO MOTUWETHFRSA Loperamide [Imodium] 2 mg PO DAILY PRN PRN Reason: Diarrhea Discharge Medication List Aspirin EC [Ecotrin Low Dose] 81 mg PO BID 11/11/16 [History] Atorvastatin [Lipitor] 80 mg PO DAILY 11/11/16 [History] Cholecalciferol (Vitamin D3) [Vitamin D3] 2,000 unit PO DAILY 11/11/16 [History] Furosemide [Lasix] 40 mg PO DAILY 11/11/16 [History] Lisinopril [Zestril] 5 mg PO DAILY 11/11/16 [History] Magnesium Oxide [Mag-Ox] 400 mg PO BID 11/11/16 [History] Metoprolol Tartrate [Lopressor] 25 mg PO BID 11/11/16 [History] Multivitamins, Thera [Multivitamin (formulary)] 1 tab PO DAILY 11/11/16 [History ] glipiZIDE [Glucotrol] 5 mg PO BID 11/11/16 [History] metFORMIN HCL [metFORMIN HCL ER] 1,000 mg PO BID 11/11/16 [History] sitaGLIPtin [Januvia] 100 mg PO DAILY 11/11/16 [History] Cyanocobalamin (Vitamin B-12) [Vitamin B-12] 1,000 mcg PO DAILY 12/07/16 [ History] Warfarin [Coumadin] 5 mg PO DIRECTED 12/07/16 [History] Doxycycline Hyclate [Vibramycin] 100 mg PO BID 12/11/16 [History] Levothyroxine Sodium [Synthroid] 88 mcg PO MOTUWETHFRSA 12/11/16 [History] Loperamide [Imodium] 2 mg PO DAILY PRN 12/11/16 [History] Follow up Appointment(s)/Referral(s): Zonia Scott MD [Primary Care Provider] - 1-2 days
--- NOTE | 2016-12-14 11:23 | P.PN ---
Subjective Principal diagnosis: Diarrhea This is a 71-year-old female patient with known history of coronary artery disease and prior bypass surgery, status post aortic valve replacement, mitral stenosis, who recently underwent a NEIL and since then has been evaluated at the [facility] for redo aortic valve surgery as well as mitral valve replacement. She was also scheduled as an outpatient to undergo cardiac catheterization on . Patient developed symptoms of UTI as an outpatient and was initiated on antibiotics, subsequent to that she has had several diarrhea stools and for this reason came to the emergency room for admission. Patient does have history of chronic atrial fibrillation and is on Coumadin for this. At the time of my examination this morning, patient has had no further episodes of diarrhea. Denies any chest pain, breathing is stable. Blood pressure 120/70, heart rate in the 90s. Hemoglobin 10.2, platelet count 158, INR 2.0, BUN 17, creatinine 0.6. 12/14/2016 Seen and examined this morning, feeling well, no further diarrhea episodes. Arrangements being made for discharge today. Patient will receive a call from our office regarding timing of cardiac catheterization which will likely be scheduled next week. Hemodynamically stable. Hemoglobin 9.7, INR 2.3, potassium 3.9, BUN 18, creatinine 0.5. Objective - Vital Signs Vital signs: Vital Signs Temp 97.0 F L 12/14/16 03:38 Pulse 66 12/14/16 08:00 Resp 18 12/14/16 09:28 BP 134/63 12/14/16 09:28 Pulse Ox 94 L 12/14/16 09:28 Intake & Output 12/13/16 12/14/16 12/14/16 18:59 06:59 18:59 Intake Total 474 360 Output Total 500 500 Balance -26 -500 360 Weight 96 kg Intake: Oral 474 360 Output: Urine 500 500 Other: Voiding Method Bedside Commode Bedside Commode Bedside Commode # Voids 1 - Exam PHYSICAL EXAMINATION: HEENT: Head is atraumatic, normocephalic. Pupils equal, round. Neck is supple. There is no elevated jugular venous pressure. HEART EXAMINATION: Heart S1 and S2 irregular irregular a grade 4/6 systolic ejection murmur is heard, systolic murmur heard at the apex CHEST EXAMINATION: Lungs are clear to auscultation and precussion. No chest wall tenderness is noted on palpation or with deep breathing. ABDOMEN: Soft, nontender. Bowel sounds are heard. No organomegaly noted. EXTREMITIES: 2+ peripheral pulses with no evidence of peripheral edema and no calf tenderness noted. NEUROLOGIC patient is awake, alert and oriented -3. . - Labs CBC & Chem 7: 12/14/16 06:13 12/14/16 06:08 Labs: Abnormal Lab Results - Last 24 Hours (Table) 12/13/16 12/13/16 12/14/16 Range/Units 16:48 20:51 06:08 RBC (3.80-5.40) m/uL Hgb (11.4-16.0) gm/dL Hct (34.0-46.0) % RDW (11.5-15.5) % PT 22.5 H (9.0-12.0) sec INR 2.3 H (<1.2) BUN (7-17) mg/dL POC Glucose (mg/dL) 114 H 145 H (75-99) mg/dL 12/14/16 12/14/16 Range/Units 06:08 06:13 RBC 3.28 L (3.80-5.40) m/uL Hgb 9.7 L (11.4-16.0) gm/dL Hct 30.8 L (34.0-46.0) % RDW 18.0 H (11.5-15.5) % PT (9.0-12.0) sec INR (<1.2) BUN 18 H (7-17) mg/dL POC Glucose (mg/dL) (75-99) mg/dL Microbiology - Last 24 Hours (Table) 12/11/16 13:15 Stool Culture - Preliminary Stool Assessment and Plan (1) Hx of CABG Status: Acute (2) Hx of aortic valve replacement Status: Acute (3) Chronic a-fib Status: Acute (4) Severe calcific aortic valve stenosis Status: Acute (5) Mitral stenosis Status: Acute (6) Acute diarrhea Status: Acute (7) UTI (urinary tract infection) Status: Acute Plan: From cardiology's perspective, we will continue the patient's current home medications. Patient may be able to be discharged home from cardiology's perspective. The office will call her regarding timing of heart cath which will likely be next week. DNP note has been reviewed, I agree with a documented findings and plan of care. Patient was seen and examined.
== END 2016-12-14 12:03 | disposition home or self-care (01) ==
LOC: EC 11:26 → 6SEL 16:27
PROVIDERS: ADMIT Family Medicine; ATTEND Family Medicine
DX: A04.7 Enterocolitis due to Clostridium difficile (principal); E86.0 Dehydration; I25.10 Atherosclerotic heart disease of native coronary artery without angina pectoris; N39.0 Urinary tract infection, site not specified; I08.0 Rheumatic disorders of both mitral and aortic valves; I48.2 Chronic atrial fibrillation; E11.9 Type 2 diabetes mellitus without complications; E03.9 Hypothyroidism, unspecified; I10 Essential (primary) hypertension; E78.5 Hyperlipidemia, unspecified; R47.1 Dysarthria and anarthria; I25.2 Old myocardial infarction; G47.30 Sleep apnea, unspecified; M19.90 Unspecified osteoarthritis, unspecified site; Z79.899 Other long term (current) drug therapy; Z79.01 Long term (current) use of anticoagulants; Z79.84 Long term (current) use of oral hypoglycemic drugs; Z79.82 Long term (current) use of aspirin; Z88.0 Allergy status to penicillin; Z88.2 Allergy status to sulfonamides; Z88.8 Allergy status to other drugs, medicaments and biological substances; Z85.42 Personal history of malignant neoplasm of other parts of uterus; Z99.89 Dependence on other enabling machines and devices; Z95.1 Presence of aortocoronary bypass graft; Z98.84 Bariatric surgery status; Z95.2 Presence of prosthetic heart valve
CPT/HCPCS: 96361 ×3; 96374; 99285; 36415; 93005; 83880; 80061; 80053 ×3; 80048; 82150 ×2; 82550 ×2; 82553 ×2; 83690 ×2; 83735 ×2; 84484 ×2; 85025 ×4; 85610 ×3; 85730; 82272; 81001; 87324; 87045; 89055; 87046; 71020; 74000; 93880; 70450; G0378 ×4; C9113

== ENCOUNTER → 2017-01-11 | Outpatient (CLI) | payer MEDICARE ==
--- NOTE | 2017-01-11 13:17 | PN ---
PROGRESS NOTE DATE OF SERVICE: 01/11/2017 A 72-year-old lady who has been [facility] for treatment of obstructive sleep apnea-hypopnea syndrome. Patient successfully continued to use his CPAP equipment every night without any significant problems with the nasal pillow mask, humidity or pressure. [place] Sleepiness Scale today is 8, which is in normal range. I checked patient's CPAP unit. CPAP pressure is 11 cm of water. Usage is 28/30 nights for more than 4 hours, which is a great compliance. Average usage 7.6 hours. Leak is up to 35 L/min which is borderline, but the patient reported that she does not open her mouth during the sleep. Apnea-hypopnea index is only 1.9, which is normal for the last months. For the 6 months, apnea-hypopnea index 1.2 average. MEDICATIONS: Metformin, glipizide, metoprolol, Januvia, atorvastatin, levothyroxine, furosemide, lisinopril, warfarin, Ecotrin, B12, D3. PHYSICAL EXAM: Patient in no distress. BP 142/58, HR 75, RR 16, height 4, 10 inches, weight 210.4, which is 9 pounds less than during the visit 1 year ago. Body mass index 43.8. Neck 14-1/2 inches in circumference. Temperature 98.5, oxygen saturation at room air 93%. OROPHARYNX: Low position of soft palate. HEART: Systolic murmur on aorta, pulmonary artery. ABDOMEN: Obese. Neck Supple, no JVD. Thyroid is not palpable. LUNGS Clear to percussion and to auscultation. Good air exchange. No wheezing or rhonchi. HEART S1, S2 regular. No murmurs, gallops, or rubs. EXTREMITIES No clubbing or cyanosis. BLANKET MAKER Awake, alert, and oriented X3. Cranial nerves 2 to 7 intact. There is no fasciculation or atrophy. noted. No focal deficits observed. Patient walks with a cane and with walker at home. IMPRESSION: 1. Obstructive sleep apnea-hypopnea syndrome on control with CPAP at 11 cm of water. Patient demonstrated great compliance with treatment, benefitting from treatment. 2. Obesity, patient lost 9 pounds since visit 1 year ago. 3. Coronary artery disease, status post coronary artery bypass grafting. 4. Status post one cardiac valve replacement. Presently, patient is under evaluation in preparation for surgery to replace three cardiac valves. 5. Hypothyroidism. 6. Hyperlipidemia. 7. Status post total hysterectomy for CA. 8. Status post lap band surgery. 9. Status post bilateral cataract surgery. 10.Status post right hip surgery x2 with total hip replacement. PLAN: 1. Continue treatment with CPAP every night. 2. Prescription for all necessary CPAP supplies including nasal pillow mask, with patient using now tube filters. 3. Continue losing weight. 4. Precautions related to driving, no driving if feeling sleepiness. 5. Patient should take her CPAP equipment with her to the hospital 80 if she will proceed with the surgical treatment. Thank you very much for allowing me to participate in the management of your patient. Sincerely, Chuy Gaona MD, PhD, FAASM Diplomat of [place] [employer] [place] [employer] [facility] [place] MMODL / ALEKSANDARN: [id number] /
== END | disposition home or self-care (01) ==
LOC: SLEEP 11:08
PROVIDERS: ATTEND Internal Medicine
DX: G47.33 Obstructive sleep apnea (adult) (pediatric) (principal); E66.9 Obesity, unspecified; I25.10 Atherosclerotic heart disease of native coronary artery without angina pectoris; E03.9 Hypothyroidism, unspecified; E78.5 Hyperlipidemia, unspecified; Z95.1 Presence of aortocoronary bypass graft; Z90.710 Acquired absence of both cervix and uterus; Z98.890 Other specified postprocedural states; Z98.84 Bariatric surgery status; Z79.01 Long term (current) use of anticoagulants; Z79.899 Other long term (current) drug therapy

== ENCOUNTER 2017-04-17 09:40 | Emergency (ER) | payer MEDICARE ==
[2017-04-17 10:13] VITALS: BP 142/53; PULSE 78; RESP 18; TEMP 97.5
[2017-04-17] MEDS ORDERED: LIDOCAINE/EPINEPHR/TETRACAINE 5 ML BOTTLE TOPICAL ONE (10:40)
[2017-04-17 11:02] LABS: Anisocytosis Slight; Basophils % (A) 1 %; Eosinophils # (A) 0.1 k/uL (0-0.7); Eosinophils % (A) 1 %; HCT 33.2 % (34.0-46.0); HGB 10.2 gm/dL (11.4-16.0); Hypochromasia Marked; Lymphocytes % (A) 15 %; MCH 30.7 pg (25.0-35.0); MCHC 30.6 g/dL (31.0-37.0); MCV 100.5 fL (80.0-100.0); Macrocytosis Slight; Mean Platelet Volume 11.1; Monocytes # (A) 0.5 k/uL (0-1.0); Monocytes % (A) 7 %; Neutrophils # (A) 5.1 k/uL (1.3-7.7); Neutrophils % (A) 75 %; Platelet Count 129 k/uL (150-450); RBC 3.31 m/uL (3.80-5.40); RDW 18.3 % (11.5-15.5); WBC 6.8 k/uL (3.8-10.6)
[2017-04-17 11:14] LABS: INR 1.8 (<1.2); Partial Thromboplastin Time 36.5 sec (22.0-30.0); Prothrombin Time 16.8 sec (9.0-12.0)
--- NOTE | 2017-04-17 11:14 | ED ---
General Adult HPI - General Chief complaint: ENT Stated complaint: NOSEBLEED ON BLOOD THINNERS Time Seen by Provider: 04/17/17 10:36 Source: patient, RN notes reviewed Mode of arrival: ambulatory Limitations: no limitations - History of Present Illness Initial comments: Patient is a 72-year-old female who presents emergency room today with chief complaint of epistaxis that started approximately midnight last night. She states she had her CPAP on try to go to bed and started bleeding from the right nostril. Patient does admit that she was on Coumadin but she stopped taking approximately one week ago. She states she has been taking an Lovenox. Injections. She states she is scheduled to have a surgery on her heart and approximately 2 weeks. Patient states that she has had a difficult time controlling the bleeding at home. Patient denies any other complaints or symptoms. Patient denies any recent fever, chills, shortness of breath, chest pain, back pain, abdominal pain, nausea or vomiting, numbness or tingling, dysuria or hematuria, constipation or diarrhea, headaches or visual changes, or any other complaints. - Related Data Home Medications Medication Instructions Recorded Confirmed Aspirin EC [Ecotrin Low Dose] 81 mg PO BID 11/11/16 04/17/17 Atorvastatin [Lipitor] 80 mg PO DAILY 11/11/16 04/17/17 Cholecalciferol (Vitamin D3) 2,000 unit PO DAILY 11/11/16 04/17/17 [Vitamin D3] Furosemide [Lasix] 40 mg PO DAILY 11/11/16 04/17/17 Lisinopril [Zestril] 5 mg PO DAILY 11/11/16 04/17/17 Magnesium Oxide [Mag-Ox] 400 mg PO BID 11/11/16 04/17/17 Metoprolol Tartrate [Lopressor] 25 mg PO BID 11/11/16 04/17/17 Multivitamins, Thera [Multivitamin 1 tab PO DAILY 11/11/16 04/17/17 (formulary)] glipiZIDE [Glucotrol] 5 mg PO BID 11/11/16 04/17/17 sitaGLIPtin [Januvia] 100 mg PO DAILY 11/11/16 04/17/17 Cyanocobalamin (Vitamin B-12) 1,000 mcg PO DAILY 12/07/16 04/17/17 [Vitamin B-12] Levothyroxine Sodium [Synthroid] 88 mcg PO [id number] 12/11/16 04/17/17 Ferrous Sulfate [Feosol] 325 mg PO DAILY 03/17/17 04/17/17 Enoxaparin [Lovenox] 100 mg SQ BID@0600,1800 04/17/17 04/17/17 Previous Rx's Medication Instructions Recorded Pantoprazole [Protonix] 40 mg PO AC-[id number] #30 tab 12/14/16 metFORMIN HCL 1,000 mg PO BID #0 01/31/17 Allergies Allergy/AdvReac Type Severity Reaction Status Date / Time niacin Allergy Rash/Hives Verified 04/17/17 10:28 [From Niaspan Extended-Release] Penicillins Allergy Rash/Hives Verified 04/17/17 10:28 Sulfa (Sulfonamide Allergy Swelling Verified 04/17/17 10:28 Antibiotics) Review of Systems ROS Statement: Those systems with pertinent positive or pertinent negative responses have been documented in the HPI. ROS Other: All systems not noted in ROS Statement are negative. Past Medical History Past Medical History: Atrial Fibrillation, Cancer, Diabetes Mellitus, Hyperlipidemia, Hypertension, Myocardial Infarction (MD), Osteoarthritis (OA), Sleep Apnea/CPAP/BIPAP, Thyroid Disorder Additional Past Medical History / Comment(s): hx uterine cancer, uses cpap Last Myocardial Infarction Date:: 2014? History of Any Multi-Drug Resistant Organisms: None Reported Past Surgical History: Cardiac Valve Replacement, Coronary Bypass/CABG, Heart Catheterization, Hysterectomy, Joint Replacement, Tubal Ligation Additional Past Surgical History / Comment(s): x3 cath, lap band 2006, right hip 2009 with revision,[email or web address], radiation 2009 for uterine cancer Past Anesthesia/Blood Transfusion Reactions: No Reported Reaction Additional Past Anesthesia/Blood Transfusion Reaction / Comment(s): difficulty waking up Past Psychological History: No Psychological Hx Reported Smoking Status: Never smoker Past Alcohol Use History: None Reported Past Drug Use History: None Reported - Past Family History Father Family Medical History: Deep Vein Thrombosis (DVT) Sister(s) Family Medical History: Cancer Mother Family Medical History: Deep Vein Thrombosis (DVT) General Exam - General Exam Comments Initial Comments: General: The patient is awake and alert, in no distress, and does not appear acutely ill. Eye: Pupils are equal, round and reactive to light, extra-ocular movements are intact. No nystagmus. There is normal conjunctiva bilaterally. No signs of icterus. Ears, nose, mouth and throat: Patient does have blood coming from the right nostril. No blood in the posterior pharynx. Neck: The neck is supple, there is no tenderness or JVD. Cardiovascular: There is a regular rate and rhythm. No murmur, rub or gallop is appreciated. Respiratory: Lungs are clear to auscultation, respirations are non-labored, breath sounds are equal. No wheezes, stridor, rales, or rhonchi. Musculoskeletal: Normal ROM, no tenderness. Strength 5/5. Sensation intact. Pulses equal bilaterally 2+. Neurological: A&O x 3. CN II-XII intact, There are no obvious motor or sensory deficits. Coordination appears grossly intact. Speech is normal. Skin: Skin is warm and dry and no rashes or lesions are noted. Psychiatric: Cooperative, appropriate mood & affect, normal judgment. Limitations: no limitations Course Vital Signs 04/17/17 10:09 Temperature 97.5 F L Pulse Rate 78 Respiratory 18 Rate Blood Pressure 142/53 O2 Sat by Pulse 95 Oximetry Medical Decision Making - Medical Decision Making Patient reexamined at this time shows no signs of distress. Patient did have a lidocaine epinephrine tetracaine mixture placed in the right nostril. This was left in for approximately 30 minutes. It was removed there was no bleeding. Silver nitrate applicator states was used to cauterize superficial vessel to the medial aspect of the right nostril. This did stop bleeding. Patient has been observed again for another half an hour has been no rebleeding at this time shows comfortable being discharged home. She is advised follow-up family doctor return here to the emergency room if symptoms increase or worsen. - Lab Data Result diagrams: 04/17/17 10:50 Lab Results 04/17/17 04/17/17 Range/Units 10:50 10:50 WBC 6.8 (3.8-10.6) k/uL RBC 3.31 L (3.80-5.40) m/uL Hgb 10.2 L (11.4-16.0) gm/dL Hct 33.2 L (34.0-46.0) % MCV 100.5 H (80.0-100.0) fL MCH 30.7 (25.0-35.0) pg MCHC 30.6 L (31.0-37.0) g/dL RDW 18.3 H (11.5-15.5) % Plt Count 129 L (150-450) k/uL Neutrophils % 75 % Lymphocytes % 15 % Monocytes % 7 % Eosinophils % 1 % Basophils % 1 % Neutrophils # 5.1 (1.3-7.7) k/uL Lymphocytes # 1.0 (1.0-4.8) k/uL Monocytes # 0.5 (0-1.0) k/uL Eosinophils # 0.1 (0-0.7) k/uL Basophils # 0.0 (0-0.2) k/uL Hypochromasia Marked Anisocytosis Slight Macrocytosis Slight PT 16.8 H (9.0-12.0) sec INR 1.8 H (<1.2) APTT 36.5 H (22.0-30.0) sec Disposition Clinical Impression: Epistaxis Disposition: HOME SELF-CARE Condition: Good Instructions: Nosebleed (ED) Additional Instructions: Please follow up with family doctor over the next 2 days. Please use nasal clamp if bleeding recurs. Please leave clamp on for 20 minutes. Bleeding uncontrolled at home please return here in the emergency room. Referrals: Zonia Scott MD [Primary Care Provider] - 1-2 days Time of Disposition: 12:51
[2017-04-17] MEDS ORDERED: SILVER NITRATE APPLICATOR 1 EACH STICK..EA. TOPICAL STA (12:07)
== END 2017-04-17 13:30 | disposition home or self-care (01) ==
LOC: EC 09:40
DX: R04.0 Epistaxis (principal); I48.91 Unspecified atrial fibrillation; E11.9 Type 2 diabetes mellitus without complications; E78.5 Hyperlipidemia, unspecified; I10 Essential (primary) hypertension; I25.2 Old myocardial infarction; M19.90 Unspecified osteoarthritis, unspecified site; G47.30 Sleep apnea, unspecified; E07.9 Disorder of thyroid, unspecified; Z85.42 Personal history of malignant neoplasm of other parts of uterus; Z99.89 Dependence on other enabling machines and devices; Z88.0 Allergy status to penicillin; Z88.2 Allergy status to sulfonamides; Z88.8 Allergy status to other drugs, medicaments and biological substances; Z79.82 Long term (current) use of aspirin; Z79.01 Long term (current) use of anticoagulants; Z79.84 Long term (current) use of oral hypoglycemic drugs; Z79.899 Other long term (current) drug therapy
CPT/HCPCS: 30901; 36415; 85025; 85610; 85730; 99283